=== PATIENT | male | born 1965 | race Caucasian/White ===

== ENCOUNTER 2016-10-28 10:13 | Inpatient (IN) ==
[2016-10-28 11:48] LABS: MANUAL DIFF NEEDED? NO
[2016-10-28 11:53] LABS: BASO% 0.3 % (0.0-0.8); EOS# 0.22 X1000 (0.0-0.7); EOS% 2.2 % (0.0-10.0); HEMATOCRIT 31.7 % (42.0-52.0); HEMOGLOBIN 9.9 g/dL (14.0-18.0); LYMPH# 1.42 X1000 (1.2-3.4); LYMPH% 14.3 % (20.5-51.1); MCH 24.9 PG (27-31); MCHC 31.2 g/dL (33-37); MCV 79.8 FL (81-99); MONO# 0.72 X1000 (0.11-0.59); MONO% 7.2 % (1.7-9.3); MPV 9.9 FL (7.4-10.4); PLT 267 X1000 (130-400); RBC 3.97 XMIL (4.7-6.1)
--- NOTE | 2016-10-28 12:03 | Diag Imaging Result Doc PS360 ---
FOOT COMPLETE LEFT - 10/28/2016 INDICATION: Infection TECHNIQUE: Three views COMPARISON: 05/28/2016 FINDINGS: There is an open wound at the lateral left mid foot with a wound VAC attached. Stable severe pedal edema. There is significant erosion of the cuboid and fifth metatarsal. The first through fourth metatarsals are grossly intact. There is chronic fracture with new bone formation longitudinally along the calcaneus this also affects the posterior subtalar facet, which is mildly displaced here. There is significant destruction and disorganization of all of the tarsal bones compatible with chronic neuropathic joint disease as well. IMPRESSION: Significant worsening from prior. Electronically signed by Robin Queen 10/28/2016 12:01 PM
--- NOTE | 2016-10-28 12:05 | Diag Imaging Result Doc PS360 ---
FOOT COMPLETE RIGHT - 10/28/2016 INDICATION: Cellulitis TECHNIQUE: Three views COMPARISON: None FINDINGS: There are internal fixation screws at the posterior calcaneus and first metatarsal base. There is a chronic fracture through the proximal fifth metatarsal shaft. There is overlying soft tissue swelling with tiny amount of soft tissue gas compatible with infection. There is severe diffuse mid tarsal joint degeneration compatible with neuropathic joint disease. No large bony erosions. There is pedal edema. IMPRESSION: Extensive chronic appearing changes. Soft tissue infection with soft tissue gas overlying the lateral fifth metatarsal base. Electronically signed by Robin Queen 10/28/2016 12:03 PM
[2016-10-28 12:07] LABS: AGAP 16; ALBUMIN 3.2 g/dL (3.5-5.0); ALKALINE PHOSPHATASE 103 U/L (32-122); BUN 14 mg/dL (8-22); CALCIUM 8.9 mg/dL (8.8-10.2); CHLORIDE 98 mmol/L (98-107); CK PROFILE 55 U/L (24-204); COSMO 278; GOT 50 U/L (10-34); GPT 58 U/L (10-44); POTASSIUM 4.1 mmol/L (3.5-5.1); SODIUM 136 mmol/L (136-145); TCO2 22 mmol/L (25-35); TOTAL BILIRUBIN 0.26 mg/dL (0.20-1.00); TOTAL PROTEIN 7.8 g/dL (6.3-8.3)
[2016-10-28 12:09] LABS: INR 1.07; PROTIME 11.3 Seconds (9.2-11.7); PTT 31.3 Seconds (22.0-36.0)
[2016-10-28 13:00] LABS: URIC ACID 3.8 mg/dL (3.4-7.0)
--- NOTE | 2016-10-28 13:34 | PROVIDER DOCUMENTATION ---
This chart was entered by Ary Reese Scribe, acting as scribe for Ady Watkins MD. HPI-Rash/Wound/ReCheck - General Chief Complaint: Extremity Pain Stated Complaint: LEFT LEG PAIN Time Seen by Provider: 10/28/16 10:22 Source: patient Allergies/Adverse Reactions: Allergies Allergy/AdvReac Type Severity Reaction Status Date / Time No Known Allergies Allergy Verified 05/28/16 12:59 Home Medications: Home Medication List Medication Instructions Recorded Confirmed Last Taken Type Allopurinol 300 mg PO QAM 05/28/16 10/28/16 10/28/16 08:00 History Carvedilol 6.25 mg PO BID 05/28/16 10/28/16 10/28/16 08:00 History Cholecalciferol (Vitamin D3) 50,000 unit PO Q7D 05/28/16 10/28/16 10/22/16 08: 00 History [Vitamin D3] Empagliflozin [Jardiance] 10 mg PO QAM 05/28/16 10/28/16 10/28/16 08:00 History Glyburide 5 mg PO BID 05/28/16 10/28/16 10/28/16 08:00 History Losartan/Hctz [Hyzaar 100/12.5 mg 1 each PO DAILY 05/28/16 10/28/16 10/28/16 08: 00 History Tab] Metformin [Glucophage] 1,000 mg PO BID CC 05/28/16 10/28/16 10/28/16 08:00 History Hydrocodone/APAP 10 mg/325 mg 1 each PO Q4H PRN PRN #30 tablet 06/06/1610/28/16 08:00 Rx [[place]-10] ATORVAstatin [Lipitor] 20 mg PO HS 10/28/16 10/28/16 10/27/16 21:00 History Albiglutide [Tanzeum] 30 mg SQ Q7D 10/28/16 10/28/16 10/22/16 08:00 History Insulin Glargine [Lantus] 30 unit SUBQ QHS 10/28/16 10/28/16 10/27/16 21:00 History Penicillin V Potassium [Penicillin 500 mg PO BID 10/28/16 10/28/16 10/28/16 08: 00 History V Potassium] Sulfamethoxazole/Tmp D.s. [Septra 1 each PO BID 10/28/16 10/28/16 10/28/16 08: 00 History Ds] - History of Present Illness-Dermatology Nature of Presenting Problem: 51 yo M presents to the ER with complaint of fever and LLE swelling, erythema, and tenderness, progressively getting worse over last week. Pt had surgery and wound vac placed in L foot in June, pt states Dr. Diego removed part of the bone as well. Since has been taking antibiotics and changing the wound dressing x3 times a week. Also has sore to R foot that is now oozing and getting worse. LLE is more swollen than R. Pt states his sugar has been running between 130-170. Location: reports: lower extremity Quality: reports: painful Onset/Duration: reports: 1 week ago Context/Associated Symptoms: reports: edema, fever, tingling Similar Symptoms Previously?: Yes Recently seen or treated by another doctor?: Yes Review of Systems - Adult - REVIEW OF SYSTEMS - ADULT Constitutional: reports: chills, fever Eyes: reports: no symptoms reported Ears, Nose, Mouth & Throat: reports: no symptoms reported Cardiovascular: denies: chest pain, palpitations Respiratory: denies: cough, shortness of breath, wheezing Gastrointestinal: denies: diarrhea, nausea, vomiting Genitourinary: reports: no symptoms reported Musculoskeletal: reports: no symptoms reported Integumentary: reports: see HPI, skin sores/ulcer. denies: itching Neurological: reports: no symptoms reported Psychiatric: reports: no symptoms reported Endocrine: reports: no symptoms reported Hematologic/Lymphatic: reports: no symptoms reported Allergic/Immunologic: reports: no symptoms reported All Other Systems: Reviewed and Negative Past History - Adult - PAST MEDICAL HISTORY-ADULT Review of Records: reports: Nursing Assessment Review, Medications Reviewed Cardiovascular: reports: HTN Respiratory: reports: sleep apnea Musculoskeletal: reports: other (gout) Endocrine/Immune: reports: Diabetes - PRIOR SURGERIES/PROCEDURES Surgical/Procedure History: reports: orthopedic (extremity) - IMMUNIZATION STATUS Childhood Immunizations: See Nurse Assessment Flu Vaccine: See Nurse Assessment Physical Exam-General - PHYSICAL EXAM-ADULT Initial Vital Signs Reviewed: Yes - CONSTITUTIONAL General Appearance: alert, no apparent distress - EYES Eyes: PERRL/EOMI, pink conjunctivae - HEAD, EARS, NOSE, MOUTH & THROAT HENMT: normocephalic/atraumatic, normal ENT inspection - NECK Neck: supple, normal inspection - RESPIRATORY Respiratory: no respiratory distress, no accessory muscle use - CARDIOVASCULAR Cardiovascular: normal peripheral pulses, regular rate, rhythm - MUSCULOSKELETAL Back Exam: no CVA tenderness, no vertebral tenderness Extremity: normal range of motion, no calf tenderness, normal capillary refill, swelling (LLE and R foot) - SKIN Integumentary: warm/dry, erythema (LLE), warm, other (stasis dermatitis L sales, cellulitis change with wound vac in place in L foot, open sore to R lateral foot oozing purulent drainage) - NEUROLOGIC Neurologic: grossly normal, no motor/sensory deficits - PSYCHIATRIC Psych/Mental Status: normal mood/affect, normal thought content, normal thought process, oriented x 3 Progress - PLAN OF CARE/RESULTS Progress/Plan/Lab Results: Vital Signs - 8 hr 10/28/16 10:15 Temperature 98.3 F Pulse Rate 83 Respiratory Rate 18 Blood Pressure 165/57 O2 Sat by Pulse Oximetry 98 Laboratory Results - last 24 hr 10/28/16 10/28/16 10/28/16 11:17 11:17 11:17 WBC 9.95 RBC 3.97 L Hgb 9.9 L Hct 31.7 L MCV 79.8 L MCH 24.9 L MCHC 31.2 L RDW Std Deviation 17.3 H Plt Count 267 MPV 9.9 Neut % (Auto) 76.0 H Lymph % (Auto) 14.3 L Benson % (Auto) 7.2 Eos % (Auto) 2.2 Baso % (Auto) 0.3 Neut # (Auto) 7.56 H Lymph # (Auto) 1.42 Benson # (Auto) 0.72 H Eos # (Auto) 0.22 Baso # (Auto) 0.03 PT INR PTT (Actin FS) Sodium 136 Potassium 4.1 Chloride 98 Carbon Dioxide 22 L Anion Gap 16 BUN 14 Creatinine 0.9 Estimated GFR/1.73 m2 > 60 BUN/Creatinine Ratio 16 Glucose 197 H Calculated Osmolality 278 Uric Acid 3.8 Calcium 8.9 Total Bilirubin 0.26 AST 50 H ALT 58 H Alkaline Phosphatase 103 Creatine Kinase 55 Troponin T Total Protein 7.8 Albumin 3.2 L Globulin 4.6 Albumin/Globulin Ratio 0.7 Plasma Lactate 2.1 10/28/16 10/28/16 11:17 11:17 WBC RBC Hgb Hct MCV MCH MCHC RDW Std Deviation Plt Count MPV Neut % (Auto) Lymph % (Auto) Benson % (Auto) Eos % (Auto) Baso % (Auto) Neut # (Auto) Lymph # (Auto) Benson # (Auto) Eos # (Auto) Baso # (Auto) PT 11.3 INR 1.07 PTT (Actin FS) 31.3 Sodium Potassium Chloride Carbon Dioxide Anion Gap BUN Creatinine Estimated GFR/1.73 m2 BUN/Creatinine Ratio Glucose Calculated Osmolality Uric Acid Calcium Total Bilirubin AST ALT Alkaline Phosphatase Creatine Kinase Troponin T < 0.010 Total Protein Albumin Globulin Albumin/Globulin Ratio Plasma Lactate Orders Category Date Time Status Saline Loc NOW Care 10/28/16 10:32 Active FOOT COMPLETE LEFT [RAD] Stat Exams 10/28/16 10:32 Completed FOOT COMPLETE RIGHT [RAD] Stat Exams 10/28/16 10:32 Completed BLOOD CULTURE [BLDCUL] Stat Lab 10/28/16 12:00 Received CBC WITH ELECTRONIC DIFF [HEME] Stat Lab 10/28/16 11:17 Completed CK PROFILE [SP CHEM] Stat Lab 10/28/16 11:17 Completed COMPREHENSIVE METABOLIC PANEL [CHEM] Stat Lab 10/28/16 11:17 Completed LACTATE, PLASMA [CHEM] Stat Lab 10/28/16 11:17 Completed PROTIME WITH INR [COAG] Stat Lab 10/28/16 11:17 Completed PTT [COAG] Stat Lab 10/28/16 11:17 Completed TROPONIN T Stat Lab 10/28/16 11:17 Completed URIC ACID [CHEM] Stat Lab 10/28/16 11:17 Completed WOUND CULTURE INC GRAM STAIN [RM] Routine Lab 10/28/16 11:51 Received Venous U/S Bilateral Legs Stat Ther 10/28/16 10:32 Completed Result Diagrams: 10/28/16 11:17 10/28/16 11:17 - XRAY 1 XRAY: Right XRAY Study: Foot Impression: Abnormal (extensive chronic appearing changes. soft tissue infection with soft tissue gas overlying the lateral fifth metatarsal base. per radiologist) 2 XRAY: Left XRAY Study: Foot Impression: See EMR Report (significant worsening from prior, per radiologist) Comparison with other Films: changes noted - CONSULTS/PCP/HOSPITALIST Notification #1 *Consult/PCP/Hospitalist*: Skyla/Dr. Gonzalez Time Discussed: 13:33 Consult Disposition: Will see in ED, Admit Departure - Departure Date of Disposition Decision: 10/28/16 Time of Disposition Decision: 13:33 DIAGNOSIS: Cellulitis, Fever Disposition: ADMITTED INPATIENT 09 Certified Medical Emergency: Emergent Condition: Stable Referrals and Follow-Ups: Ying Abel MD [Primary Care Provider] - - Critical Care Note This patient required my direct & personal management of CC.: No This chart was documented by the indicated scribe, (Ary Reese Scribe) and accurately reflects the services I performed and decisions made by me, Ady Watkins MD, as attested by the provider's signature.
[2016-10-28] MEDS ORDERED: VANCOMYCIN 1 GM/NS 1 GM/250 ML IVPB IV ONE (13:48)
[2016-10-28] MEDS ORDERED: ZOSYN 3.375 GM/NS 3.375 GM/50 ML IVPB IV ONE (13:48)
[2016-10-28] MEDS ORDERED: ZOFRAN IV PRN (15:35)
[2016-10-28] MEDS ORDERED: NS 1,000 ML IV SCH (15:35)
[2016-10-28] MEDS ORDERED: VANCOMYCIN IV PER PHARMACY MISC SCH (15:35)
[2016-10-28] MEDS: DIABETA PO SCH (16:27)
[2016-10-28] MEDS: GLUCOPHAGE PO SCH (16:27)
[2016-10-28 16:36] LABS: URINE CULTURE NEEDED? NO; URINE MICRO REVIEW NEEDED? NO; URINE SOURCE CLEAN CATCH
[2016-10-28 16:40] LABS: BILIRUBIN URINE NEGATIVE (NEGATIVE); BLOOD URINE TRACE (NEGATIVE); COLOR YELLOW; GLUCOSE URINE >1000 mg/dL (NEGATIVE); LEUKOCYTES URINE NEGATIVE (NEGATIVE); NITRITE URINE NEGATIVE (NEGATIVE); PH URINE 5.5; PROTEIN URINE TRACE mg/dL (NEGATIVE); SP GRAVITY URINE 1.035; TURBIDITY URINE CLEAR (CLEAR); UROBILINOGEN URINE NORMAL (NORMAL)
[2016-10-28 16:41] LABS: UR EPITHELIAL CELLS <10 /HPF (<10); URINE BACTERIA NEGATIVE /HPF; URINE RBC <10 /HPF (<10); URINE WBC <10 /HPF (<10)
[2016-10-28] MEDS: HUMULIN R SUBQ SCH ×2 (16:51→22:11)
[2016-10-28] MEDS: TYLENOL PO PRN (16:59)
--- NOTE | 2016-10-28 18:21 | Extremity Venous Study ---
PROCEDURE NAME: Venous U/S Bilateral Legs - 10/28/2016 BILATERAL LOWER EXTREMITY VENOUS ULTRASOUND: REQUESTING PHYSICIAN: Dr. Watkins. TETRYL BOILING TUB OPERATOR: Dariana. INDICATION: Pain and swelling with foot ulcers. COMPARISON: Exam from May 2016, which was negative. FINDINGS: The deep and superficial veins of the bilateral lower extremities were visualized along their course. All veins were compressible with forward flow. No evidence of intraluminal thrombus. There is some nonspecific lymphadenopathy in the left groin, would recommend correlating this clinically. SUMMARY: No deep or superficial venous thrombosis in the bilateral lower extremities. cc: MD Jim Gregory MD
--- NOTE | 2016-10-28 20:25 | HISTORY AND PHYSICAL ---
DATE OF ADMISSION: 10/28/2016. PRIMARY CARE PROVIDER: Dr. Ying Abel. PRIMARY SURGEON FOR HIS FOOT WOUNDS: Dr. Corona. PRIMARY INFECTIOUS DISEASE: Dr. Rob. CHIEF COMPLAINTS: 1. Left lower extremity pain and a new redness over the right lateral foot. 2. Fever. HISTORY OF PRESENT ILLNESS: Mr. Rowe is a 51-year-old, male, with a medical history of" 1. Cellulitis on and off over the last 10 years. 2. Diabetes mellitus type 2. 3. Hypertension. 4. Obstructive sleep apnea with CPAP. 5. Type 2 hypertension. 6. Obstructive sleep apnea with CPAP machine use. 7. Right diabetic foot ulcer status post I D several years ago. Who in May of 2016 was seen for a new ulcer of the left foot. Apparently, this ulcer started in April. He presented 05/28/2016 and has been seen by Dr. Corona. During that admission, he had a left foot lateral debridement with some bone removed and has been where a wound VAC ever since. Reviewing antibiotics, he has been on penicillin, per Dr. Rob, as a prophylaxis for the right foot. Given that he has got hardware of the right foot. He started having some complaints of subjective fever up to 101.8 with nocturnal sweats. Apparently, wakes up around 1 or 2 o'clock in the morning drenched. He went to see Dr. Lal, his primary care provider, on Saturday who started him on . The patient states that symptoms did not improve. They did not get worse, but did notice that over the last 5 days the right foot wound that he has had for 2-1/2 years that had been stable is now draining days a milky pink substance and has developed a redness around it. He also noticed the redness of the left lower extremity. It is hot, swollen, and red and he has noticed that over the last 10 days. He states that he normally has lower extremity swelling, but when he props them up, the swelling goes down and over the last 10 days, the swelling has not gone down. His pain level gets up to about a 7/10. As an outpatient, he changes his wound VAC 3 times a week and he has had the wound VAC since June. He sees Dr. Corona every 2-3 weeks. His last visit was 2 weeks ago with him and at that time, there were no symptoms. He was supposed to follow up with Dr. Corona this Saturday. Given the new symptoms, although he has a white count of 9,000 and he is afebrile, he does show signs of cellulitis over the left sales area and around the right foot with purulent drainage from that area. We will go ahead and admit him. Start him on IV antibiotic therapy. Consult Surgery and consult Dr. Rob. PAST MEDICAL HISTORY: 1. Cellulitis on and off over the last 10 years. 2. Diabetes mellitus type 2, requiring insulin. 3. Hypertension. 4. Obstructive sleep apnea on CPAP. 5. History of right foot ulcer for 2-1/2 years that was stable. SURGICAL HISTORY: 1. Right foot incision and drainage with hardware placement in May. 2. Left foot debridement with some bone removed. 3. No other surgeries. SOCIAL HISTORY: 1. Denies tobacco, alcohol or illicit drug use. 2. 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 3. He has 2 children of his own and a supportive at the bedside. FAMILY HISTORY: 1. Father is alive with a history of diabetes mellitus, and kidney stones. 2. His mother is alive with a history of chronic obstructive pulmonary disorder. REVIEW OF SYSTEMS: Fourteen point review of systems were complete and all were negative except for those mentioned in the above HPI. ALLERGIES: No known drug allergies. HOME MEDICATIONS: 1. Tanzeum 30 mg subcutaneous every 7 days. 2. Allopurinol 300 mg p.o. daily. 3. Lipitor 20 mg p.o. nightly. 4. Carvedilol 6.25 mg p.o. twice daily. 5. Vitamin D3 50,000 units p.o. every 7 days. 6. Jardiance 10 mg p.o. daily. 7. Glyburide 5 mg p.o. twice daily. 8. [place] 10 1 tab p.o. every 4 hours p.r.n. for pain. 9. Lantus 30 units subcutaneous nightly. 10. Hyzaar 100/12.5 mg p.o. daily. 11. Metformin 1000 mg p.o. twice daily. 12. Penicillin. 13. Potassium 500 mg p.o. twice daily. 14. Septra DS 1 tab p.o. twice daily. PHYSICAL EXAMINATION: VITAL SIGNS: Temperature 98.3 degrees, heart rate 83, respiratory rate 18, blood pressure 165/57, O2 saturation 98% on room air. 6 foot, 0 inch tall. 252 pounds. BMI is 34.2. GENERAL: Mr. Rowe is a 51-year-old, male, he is in no acute distress. He is able answer questions appropriately. HEENT: Atraumatic, normocephalic. Pupils equal, round, reactive to light. Extraocular movements are intact. NECK: No JVD or carotid bruits noted. CARDIOVASCULAR: S1, S2. Regular rate and rhythm. No rubs, gallops, or murmurs. PULMONARY: Clear to auscultation. Bilateral breath sounds. No accessory muscle use or work of breathing noted. GI: Soft, nontender, nondistended. Positive bowel sounds x4. EXTREMITIES: Left lower extremity, 1 to 2+ edema. Right lower extremity, no edema. +1 to +2 dorsalis pedal pulses, +2 radial pulses. Right foot wound open to air with redness around on the right lateral foot and. Left leg with wound VAC in place on the foot. Left sales to calf with redness, swelling, heat, and pain. Palpable lymph nodes and left groin noted. SKIN: Warm, dry, and intact except for lower extremities as noted on extremity assessment. Also has an old scab over the left sales and in the area where the cellulitis is. NEUROLOGIC: Alert and oriented x4. Moves all extremities equally. LABORATORY DATA: CBC: White blood cells 9,000. Hemoglobin 9, hematocrit 31, platelet count 267,000. INR: 1.07. PTT: 31.3. Chem: Sodium 136, potassium 4.1, BUN 14, creatinine 0.9, glucose 197, uric acid 3.8, calcium 8.9, bilirubin 0.26, AST 58, ALT 58. CK 55 , troponin less than 0.01, albumin 3.2, lactate 2.1. IMAGING: Complete left foot x-ray 3 views: Shows open wound at the lateral left mid foot with wound VAC attached, stable. Severe pedal edema. Significant erosion of the cuboid and 5th metatarsal. The 1st through 4th metatarsals are intact. There is a chronic fracture with new bone formation longitudinal along the calcaneus, which affects the posterior subtalar facet, which is mildly displaced. There is significant destruction and disorganization of all of the tarsal bones, compatible with chronic neuropathic joint disease as well. This x-ray has significant worsening from the prior x-ray. Three view x-ray of the right foot: Shows internal fixation screws at the posterior calcaneus and 1st metatarsal base. There is a chronic fracture through the proximal 5th metatarsal shaft. There is overlying soft tissue swelling with tiny amount of soft tissue gas compatible with infection. There is severe diffuse mid tarsal joint degeneration compatible with neuropathic joint disease. No large bony erosions and there is pedal edema. ASSESSMENT AND PLAN: 1. Cellulitis, left lower extremity to the foot with open wound. Right foot with new infection of the of an old wound. We will start on broad-spectrum antibiotics, vancomycin and Zosyn. Consult surgery and consult Infectious Disease. Upon reviewing old wound cultures. The left foot, at one point in time on 06/10/2016, had Kocuria kristinae, which is a day gram positive cocci. And then on 05/29/2016, a culture revealed of the left foot noted a Coccus faciallis, which was sensitive to vancomycin and penicillin. As an outpatient, he has been on penicillin twice a day. We will follow up new cultures of the left foot with wound VAC change and then the right foot has also been cultured. 2. Left lower extremity significant swelling with cellulitis. We will go ahead and do an ultrasound to rule out deep vein thrombosis. 3. Diabetes mellitus type 2. Continue most home medications and start on sliding scale insulin, pattern of blood sugar, and diabetic diet. 4. Obstructive sleep apnea. Can use a CPAP machine at home. 5. Hypertension. Continue home medications. 6. Gout. Continue gout medication. DEEP VENOUS THROMBOSIS PROPHYLAXIS: Lovenox. GASTROINTESTINAL PROPHYLAXIS: None for right now. Dictated by WAYLON Kate for Jim Cid MD cc: WAYLON Kate MD Akram Haggag, MD Jason R. Seale, MD Leroy F. Harris, MD MTDD
[2016-10-28] MEDS: LANTUS SUBQ SCH (21:55)
[2016-10-28] MEDS ORDERED: INSULIN PEN NEEDLES ONE (21:59)
[2016-10-28] MEDS: ZOSYN 3.375 GM/NS 3.375 GM/50 ML IVPB IV SCH (22:03)
[2016-10-28] MEDS: LIPITOR PO SCH (22:03)
[2016-10-28] MEDS: COREG PO SCH (22:04)
[2016-10-29] MEDS: VANCOMYCIN 2 GM in NS 500 ML IV SCH ×2 (00:20→17:08)
[2016-10-29] MEDS: ZOSYN 3.375 GM/NS 3.375 GM/50 ML IVPB IV SCH ×4 (02:12→20:31)
--- NOTE | 2016-10-29 05:21 | CONSULTATION ---
DATE OF CONSULTATION: 10/28/2016 HISTORY OF PRESENT ILLNESS: This is a 51-year-old male in short with a longstanding history of bilateral diabetic foot wound and Charcot changes followed by Dr. Diego in the [facility]. He has had numerous debridement's of his right bilateral feet most recently the left since June with a wound VAC in place on the left foot. There was a persistent wound here with some exposed bone that Dr. Diego is considering debriding. He noticed the low-grade fever earlier this week on Saturday with some cellulitis around the wound which has failed to improve with oral antibiotics prompting his presentation to the emergency department. PAST MEDICAL HISTORY: 1. Diabetes. 2. Chronic diabetic foot wounds. 3. Hypertension. 4. Obstructive sleep apnea. SURGICAL HISTORY: He had right foot incision debridement's. There is some hardware placement in his right foot with multiple excisional debridement's of his left foot. SOCIAL HISTORY: No tobacco, alcohol or drugs. He is and has 2 children. He works as a nurse. FAMILY HISTORY: COPD. MEDICATION: Per the MAR. REVIEW OF SYSTEMS: Ten point negative except for what is mentioned in HPI. PHYSICAL EXAMINATION: Temperature 97.8 degrees, pulse 78, blood pressure 121/62 and oxygen saturation 98% on room air.General: He is alert in no acute distress. HEENT: No scleral icterus. Cardiovascular: Normal rate and regular rhythm. Pulmonary: On room air. Extremities: Right foot has a chronic deformity consistent with Charcot changes. There are some incisions previously that are well healed on his foot and a lateral callus with very dry focal eschar here. On the left foot, there is 2+ edema extending to the level of the knee with woody changes here. The lateral foot had a wound VAC. We took this off and there was granulation tissue here with an exposed bone of the 5th metatarsal on palpation. There is no purulence or obvious necrosis here. White count is 9, hematocrit 31, creatinine 0.9, glucose is 197. Troponin's were normal. Albumin is 3.2. X-ray showed bilateral chronic changes both feet. ASSESSMENT AND PLAN: This is a 53-year-old male with chronic diabetic foot wounds who presents now with fevers and some erythema. I think there is some mild cellulitis associated here. This is a chronic wound and Dr. Diego plans to debride possible bone in the future and was debating about taken to the operating room during his last visit last week. I think for this reason we will admit and start him on IV antibiotics. We will continue local wound care and remove his wound VAC. We will place wet-to-dry dressings in the meantime. Dr. Corona will see him and evaluate him. He is on prophylactic antibiotics with ampicillin per Dr. Rob. He is not on any IV antibiotics at home. We will make a decision whether he needs to do this going forward. cc: MD Jim Gregory MD
--- NOTE | 2016-10-29 05:47 | CONSULTATION ---
DATE OF CONSULTATION: 10/28/2016 CONCLUSIONS: The patient is admitted to the hospital with severe left foot infection that appears to have cellulitis. There may be an underlying osteomyelitis. The patient on his right foot has a smaller ulcer, and the foot is not as red. It has an element of cellulitis but I doubt it is osteomyelitis. 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 RECOMMENDATIONS: A culture from the right foot already has been obtained. I have obtained one from the large left foot ulcer. The swab went deep but it did not touch the bone as best I could determine. I agree with placing the patient on vancomycin and Zosyn pending culture results. I have ordered that the foot of the patient's bed should be remain elevated with the manual Gatch at all times. I have told the patient to elevate both feet as much as possible. I have ordered an MRI of the left foot. DISCUSSION: The patient approximately a week ago started developing fever and chills and erythema and swelling in the left foot. Patient has been followed by Dr. Matthew at the wound clinic. He had a VAC on his foot but Dr. Matthew changed this to saline dressings today. Patient's laboratory studies show a CBC with a white count of 9950, hemoglobin 9.9, platelet count is 267,000, creatinine 0.9. ALT is 58. A Gram stain from the patient's right foot a small ulcer showed white cells. Blood cultures are pending. X-rays of both feet showed neuropathic joint disease the left is much worse than the right side. PAST MEDICAL HISTORY/REVIEW OF SYSTEMS: Eyes and Ears: He denies difficulty hearing or seeing. Neck: No stiffness. Respiratory: No cough or shortness of breath. Cardiac: No chest pain or palpitations. GI: No nausea, vomiting, or diarrhea. : No dysuria or flank pain. Endocrine: Patient has diabetes mellitus but not thyroid disease. Bones/Joints/Muscles: See above discussion of neuropathic joint disease. Neurologic: No seizures. No motor or sensory loss. The remainder of the patient's review of systems was completed and was negative. PREVIOUS HOSPITALIZATIONS AND OPERATIONS: He has had surgery on both of his feet. MEDICAL DISEASES: Positive for diabetes mellitus, hypertension, gout and neuropathic joint disease of both feet. Hyperlipidemia. INFECTIOUS DISEASE HISTORY: Positive for leg cellulitis and deeper infection in his left foot. FAMILY HISTORY: Positive for diabetes mellitus, hypertension, stroke, and cancer. SOCIAL HISTORY: The patient lives in [place]. He is . He is a nurse. ALLERGIES: He has no known allergies. He does not have any pets at home. MEDICATIONS: His home medicines include the following Septra, insulin, Lipitor, Tanzeum, penicillin, hydrocodone, cholecalciferol, Jardiance, carvedilol, allopurinol, metformin, losartan/hydrochlorothiazide, and Glyburide. PHYSICAL EXAMINATION: Vital Signs: Temperature is 97.8 degrees, pulse 78, respirations 14, blood pressure 121/62. Patient weighs 246 pounds. General: This is an obese but otherwise healthy- appearing middle-aged male who is in no acute distress. Head, eyes, ears, nose, and throat: He can hear my spoken words and see near objects. No drainage is noted from the nose or ears. There was no white patches on the tongue. Neck: No meningismus. Thorax: No increased AP diameter of the chest. Lungs: Clear to auscultation. Cardiovascular: Heart rate is regular. Abdomen: Soft and nontender. Extremities: The patient's left leg was more swollen than the right. It had been the area between the ankle and the knee. The left foot had a large deep ulcer laterally and the foot was very erythematous. There was no odor to the foot. The patient's right leg was less swollen and the right foot dressing was intact Neurologic: The patient is alert. He can move his extremities. There is no tremor. His sensation was intact to touch. His memory as regarding his medical history was good. Integument: No rash noted. cc: MD Jim Wall MD
[2016-10-29] MEDS: NORCO-10 PO PRN ×2 (06:22→22:33)
[2016-10-29] MEDS: HUMULIN R SUBQ SCH ×3 (06:23→16:31)
[2016-10-29 07:18] LABS: MANUAL DIFF NEEDED? NO
[2016-10-29 07:24] LABS: BASO% 0.3 % (0.0-0.8); EOS# 0.24 X1000 (0.0-0.7); EOS% 2.8 % (0.0-10.0); HEMATOCRIT 29.6 % (42.0-52.0); HEMOGLOBIN 9.4 g/dL (14.0-18.0); IMM GRAN# 0.04 X1000 (0.0-0.04); IMM GRAN% 0.5 % (0.0-0.5); LYMPH# 1.49 X1000 (1.2-3.4); LYMPH% 17.1 % (20.5-51.1); MCH 24.5 PG (27-31); MCHC 31.8 g/dL (33-37); MCV 77.3 FL (81-99); MONO# 0.77 X1000 (0.11-0.59); MONO% 8.9 % (1.7-9.3); MPV 9.7 FL (7.4-10.4); NEUT% 70.4 % (42.2-75.2); PLT 297 X1000 (130-400); RBC 3.83 XMIL (4.7-6.1)
[2016-10-29 07:31] LABS: INR 1.08; PROTIME 11.4 Seconds (9.2-11.7); PTT 31.1 Seconds (22.0-36.0)
[2016-10-29 07:49] LABS: AGAP 13; ALBUMIN 2.9 g/dL (3.5-5.0); ALKALINE PHOSPHATASE 96 U/L (32-122); BUN 12 mg/dL (8-22); CALCIUM 8.8 mg/dL (8.8-10.2); CHLORIDE 102 mmol/L (98-107); COSMO 274; GOT 38 U/L (10-34); GPT 48 U/L (10-44); MAGNESIUM 1.8 mg/dL (1.5-2.7); POTASSIUM 3.9 mmol/L (3.5-5.1); SODIUM 138 mmol/L (136-145); TCO2 23 mmol/L (25-35); TOTAL BILIRUBIN 0.32 mg/dL (0.20-1.00); TOTAL PROTEIN 7.5 g/dL (6.3-8.3)
[2016-10-29 07:50] LABS: HEMOGLOBIN A1C 7.6 % (4.8-6.0)
[2016-10-29] MEDS: COREG PO SCH ×2 (08:33→20:31)
[2016-10-29] MEDS: GLUCOPHAGE PO SCH ×2 (08:33→16:37)
[2016-10-29] MEDS: ZYLOPRIM PO SCH (08:33)
[2016-10-29] MEDS: DIABETA PO SCH ×2 (08:33→16:37)
[2016-10-29] MEDS: HYZAAR 100/12.5 MG TAB PO SCH (08:33)
[2016-10-29] MEDS: LOVENOX SUBQ SCH (08:34)
[2016-10-29] MEDS ORDERED: VITAMIN D PO SCH (09:00)
--- NOTE | 2016-10-29 13:19 | Diag Imaging Result Doc PS360 ---
EXAM: MRI LOWER EXT W/WO CON-LEFT INDICATION: L foot osteomyelitis TECHNIQUE: COMPARISON: 05/28/2016 FINDINGS: There has been marked erosion of the fifth metatarsal since the previous study. There is marrow signal abnormality and worsening erosive changes involving the cuboid indicating osteomyelitis. There is also new marrow edema involving the anterior aspect of the calcaneus. There is also evidence of osteomyelitis now at the base of the fourth metatarsal. There is extensive irregularity and signal abnormality involving multiple intertarsal joints and the surrounding bone. This is similar but appears worse than the previous study. At least some of this represents changes related to a neuropathic foot. There is a prominent ulcer involving the soft tissues overlying the cuboid, which extends to the surface of the cuboid. There is extensive soft tissue edema around the ulceration. There is fluid signal and enhancement around the peroneus longus tendon suggesting tenosynovitis. IMPRESSION: Interval worsening of osteomyelitis and neuropathic foot as compared to the previous study. Electronically signed by Shemar Conn 10/29/2016 1:17 PM
--- NOTE | 2016-10-29 15:14 | PROGRESS NOTE ---
DATE: 10/29/2016 SUBJECTIVE: The patient is resting comfortably in bed. He has got dressing on both of his feet. OBJECTIVE: Vital Signs: Temperature 98.6 degrees, blood pressure 149/66, heart rate 74, respirations 18, O2 saturations 97% on room air. General: This is a morbidly obese male, lying in bed, in no acute distress. Head: Normocephalic, atraumatic. Heart: S1, S2. Normal. Regular rate and rhythm. Lungs: Clear to auscultation bilaterally. Abdomen: Positive bowel sounds. Soft, nontender, nondistended. Extremities: The patient has dressings applied to both of his feet. Neurologic: The patient is alert and oriented x3. LABORATORY: Sodium 138, potassium 3.9, chloride 102, CO2 23, BUN 12, creatinine 0.9, glucose 77. Hemoglobin A1c 7.6. AST 38, ALT 48, alkaline phosphatase 96. ASSESSMENT AND PLAN: 1. Left foot osteomyelitis and right foot ulceration with cellulitis. management as per Dr. Rob and Dr. Corona. 2. Uncontrolled insulin-dependent diabetes mellitus type 2. The patient's hemoglobin A1c is 7.6. We will continue on Lantus 30 units at bedtime plus sliding scale coverage. 3. Morbid obesity. Aware. 4. Vitamin D deficiency. Continue with vitamin D replacement. 5. Hypertension. Continue on the current antihypertensives regimen. 6. Deep venous thrombosis prophylaxis. Continue on Lovenox. cc: MD Jim Valadez MD
[2016-10-29] MEDS: TYLENOL PO PRN (16:43)
--- NOTE | 2016-10-29 17:53 | PROGRESS NOTE ---
DATE: 10/29/2016 PRESENT ILLNESS: The patient has a combination of severe neuropathic joint disease and osteomyelitis especially in the left foot but most likely the same process is going on in the right foot. In addition the left foot has cellulitis. The patient is on a combination of vancomycin and Zosyn. This is day 1 of treatment with him pending results of culture. MEDICATIONS: The patient, as mentioned above, is on vancomycin and Zosyn. This is day 1 of their treatment. PHYSICAL EXAMINATION: Vital Signs: Temperature is 98 degrees, pulse 65, respirations 18, blood pressure 135/69. Generally: This is a chronically ill-appearing middle-aged male. He is in no acute distress. Lungs: Clear to auscultation. Cardiovascular: Regular heart rate. Abdomen: Soft and nontender. Extremities: The left leg was more swollen than the right. I removed the dressing on the left foot. It has a large wound. When I stuck the swab in to get a culture it went to the bone thus confirming a diagnosis of osteomyelitis. Neurologic: Patient is awake. He can move his extremities. There is no tremor. ASSESSMENT AND PLAN: The patient has severe foot infection especially in the left foot. I am waiting for the final results from his cultures. For right now, I am going to continue treating with vancomycin and Zosyn. The plan will be to continue his antibiotics and to keep this person off his feet. As an outpatient, I think it would be reasonable for him to see Dr. Cheema if he has anything further to add about treating the patient's infection and neuropathic joint disease. COMORBIDITIES: He has neuropathic joint disease, diabetes mellitus, gout and he is obese. cc: MD Jim Wall MD
[2016-10-29] MEDS: LIPITOR PO SCH (20:32)
[2016-10-29] MEDS: LANTUS SUBQ SCH (20:35)
[2016-10-30] MEDS: HUMULIN R SUBQ SCH ×4 (03:18→20:55)
[2016-10-30] MEDS: ZOSYN 3.375 GM/NS 3.375 GM/50 ML IVPB IV SCH ×3 (04:16→14:35)
[2016-10-30 07:50] LABS: MANUAL DIFF NEEDED? NO
[2016-10-30 07:55] LABS: BASO% 0.7 % (0.0-0.8); EOS# 0.25 X1000 (0.0-0.7); EOS% 3.6 % (0.0-10.0); HEMATOCRIT 30.6 % (42.0-52.0); HEMOGLOBIN 9.7 g/dL (14.0-18.0); IMM GRAN# 0.06 X1000 (0.0-0.04); IMM GRAN% 0.9 % (0.0-0.5); LYMPH# 1.34 X1000 (1.2-3.4); MCH 24.7 PG (27-31); MCHC 31.7 g/dL (33-37); MCV 77.9 FL (81-99); MONO# 0.63 X1000 (0.11-0.59); MONO% 8.9 % (1.7-9.3); MPV 9.9 FL (7.4-10.4); NEUT% 66.9 % (42.2-75.2); PLT 314 X1000 (130-400); RBC 3.93 XMIL (4.7-6.1)
[2016-10-30 08:15] LABS: AGAP 12; BUN 14 mg/dL (8-22); CALCIUM 9.1 mg/dL (8.8-10.2); CHLORIDE 99 mmol/L (98-107); COSMO 275; POTASSIUM 4.5 mmol/L (3.5-5.1); SODIUM 136 mmol/L (136-145); TCO2 25 mmol/L (25-35)
[2016-10-30] MEDS: DIABETA PO SCH ×2 (09:25→16:58)
[2016-10-30] MEDS: HYZAAR 100/12.5 MG TAB PO SCH (09:25)
[2016-10-30] MEDS: ZYLOPRIM PO SCH (09:25)
[2016-10-30] MEDS: LOVENOX SUBQ SCH (09:26)
[2016-10-30] MEDS: GLUCOPHAGE PO SCH ×2 (09:26→16:58)
[2016-10-30] MEDS: COREG PO SCH ×2 (09:27→21:15)
[2016-10-30] MEDS: VANCOMYCIN 2 GM in NS 500 ML IV SCH (11:01)
--- NOTE | 2016-10-30 12:46 | PROGRESS NOTE ---
DATE: 10/30/2016 SUBJECTIVE: Today, Mr. Rowe referred to be doing a lot better. Still continues to have some warm feeling in the left leg. Patient was evaluated today by Dr. Corona and was recommended to be seen by Orthopedics. OBJECTIVE: Vital Signs: Blood pressure is 135/73, pulse of 70, respiration 16, temperature is 98.3 degrees. General: Mr. Rowe is a 51-year-old male. He was in bed. He is slightly obese with a BMI of 33.4. He was not in any distress. HEENT: Mucosa pink and moist. Anicteric. Acyanotic. Neck supple. Chest was good. No crepitations. No rhonchi. Cardiovascular: Regular rate and rhythm. Abdomen is slightly distended but nontender. Bowel sounds are present. Extremities: No pedal edema. There are some chronic changes consistent with stasis dermatitis. Both feet are in sterile dressing. The left leg is slightly warm, but there are no acute inflammatory changes. IMAGING STUDIES OF SIGNIFICANCE: An MRI was done yesterday of the lower extremity which shows interval worsening of osteomyelitis and neuropathic feet compared to previous. ASSESSMENT: 1. Osteomyelitis to left foot. The patient has been evaluated by General Surgery. I think the plan is for Orthopedics to evaluate to see if they would want to do any amputation or any bone removal for the osteomyelitis. 2. Diabetes mellitus, insulin dependent. A1c 7.6. We will continue with the current therapy. 3. Vitamin D deficiency noted. 4. Hypertension, controlled. 5. Mild obesity with Body Mass Index of 33.4. 6. Microcytic anemia likely related to chronic disease with possible relative iron deficiency. We would do iron studies. cc: Alex Nascimento MD [facility]
--- NOTE | 2016-10-30 13:28 | PROGRESS NOTE ---
DATE: 10/30/2016 SUBJECTIVE: The patient reports recent increase in pain in his leg and foot and some low-grade fever. OBJECTIVE: Vital signs: He is afebrile. Vital signs are stable. General: He is alert and oriented x3. No acute distress. Extremities: His left foot wound was examined. Again, there is granulation across the dorsum. However, laterally there is persistent non-granulated soft tissue. It is somewhat montesinos in appearance. There is no gross pus or foul odor, however. There is palpable bone underneath this soft tissue. The foot and ankle are mildly red and swollen and warm. LABORATORY: White blood cell count 7, hemoglobin 9.7, hematocrit 30.6, platelet count 314,000. Metabolic profile was reviewed. His blood sugars are in the mid to high 100s. Hemoglobin A1c is 7.6. IMAGING: An MRI of his left foot was reviewed and there is erosion of the 5th metatarsal and marrow signal abnormality with erosive changes involving the cuboid, this indicates osteomyelitis, as well as some marrow edema of the anterior aspect of the calcaneus. There is also evidence of osteomyelitis at the base of the 4th metatarsal. There is extensive irregularity and signal abnormality involving multiple intertarsal joints and surrounding bones. This is worse from the previous study. Some of this represents a neuropathic foot. There is fluid signal enhancement around the peroneus longus tendon suggesting tenosynovitis. ASSESSMENT AND PLAN: A 51-year-old male with chronic nonhealing diabetic foot ulcer with a history of osteomyelitis and Charcot arthropathy. Overall this appears to have worsened. There is likely worsening degenerative changes of his mid and hindfoot with associated osteomyelitis. I do not know if this foot can be salvaged at this point. I am going to ask for Dr. Cheema's evaluation for any salvageability. We will continue IV antibiotics, vancomycin and Zosyn, with wet-to-dry dressing changes for now. cc: MD Alex Fulton MD
--- NOTE | 2016-10-30 15:42 | PROGRESS NOTE ---
DATE: 10/30/2016 SUBJECTIVE: The patient is doing fine this afternoon. No new complaints. OBJECTIVE: I looked at his right foot wound during this exam and he does have a tunneling sinus with palpable bone very close to the skin Edge. There is some thick, mostly clotted blood that is draining of the wound. I do not see any luciana pus or surrounding erythema. He does have Charcot deformity of this foot as well. ASSESSMENT AND PLAN: This is a 51-year-old male with Charcot arthropathy of both feet. The left is worse than the right. There is a concern for worsening osteomyelitis of the left foot and now possibly of the right foot. At this point, he is failing the wound care that I have been doing for several months. I have talked to Dr. Linden Cheema who prefers to see him next week in his office for possible wide debridement and external fixation of the left foot. He wants to biopsy the bone to try to prove whether this is truly osteomyelitis or simply degenerative arthritic changes. He felt like keeping him off antibiotics for right now would be fine. He has a chronic process and the antibiotics probably would not gain us much at this point. So the plan is to let him be discharged today or tomorrow, hold off antibiotics and try to get a true bone culture with Dr. Cheema perhaps next week. cc: MD Alxe Fulton MD
--- NOTE | 2016-10-30 16:01 | PROGRESS NOTE ---
DATE: 10/30/2016 PRESENT ILLNESS: The patient has severe neuropathic joint disease going on in both feet and also there appears to be osteomyelitis and cellulitis involving the left foot as well and possibly to a lesser extent, to the right foot. The patient is on a combination of vancomycin and Zosyn. This is day 2 of treatment with the antibiotics. MEDICATIONS: As mentioned above, the patient is on day 2 of vancomycin and Zosyn. PHYSICAL EXAMINATION: Vital Signs: Temperature is 97.8, pulse 72, respirations 18, blood pressure 133/62. Generally: This is a chronically ill-appearing, middle-aged male. He is in no acute distress. Lungs: Clear to auscultation. Cardiovascular: Heart rate is regular. Abdomen: Soft and nontender. Extremities: There are dressings around both feet. The left leg is more swollen than the right. The dressings are intact. ASSESSMENT AND PLAN: The patient has a severe neuropathic disease and probable osteomyelitis as well. He has been this way for a prolonged period of time and for now, our plan is to stop the antibiotics and then let him see Dr. Cheema as an outpatient to see if there is some type of salvage procedure that can be done on the foot or whether amputation is necessary. Dr. Corona and I discussed situation and we both feel it would be better to stop the antibiotics now. That way, we can get good cultures if the patient does have an infection in there. Prior to this time, the patient has been off antibiotics for long periods of time and his foot does not seem to improve or get worse. He has been off antibiotics for a long period of time, and his foot does not deteriorate or get any worse than it does when he is on antibiotics. I have ordered a MRI on the R foot. COMORBIDITIES: Include neuropathic joint disease, diabetes mellitus, gout and obesity, possibly not good control of his diabetes. cc: MD Alex Wall MD MTDD
--- NOTE | 2016-10-30 17:00 | Diag Imaging Result Doc PS360 ---
EXAM: MRI LOWER EXT W/WO CON-RIGHT HISTORY: osteomyelitis, neuropathic arthropathy R foot TECHNIQUE: MRI of the right foot with and without gadolinium; T1-T2 axial, T1 STIR coronal, T1 sagittal and post gadolinium-enhanced fat-suppressed sagittal, T1 SPGR fat sat with contrast coronal and T1 post gadolinium axial. COMMENT: There is metallic artifact arising from a screw in the proximal first metatarsal and another in the posterior calcaneus. There is edema on the lateral aspect of the plantar fascia. There is what appears to be a subchondral cyst in the posterior cuboid. There is an old fracture of the proximal fifth metatarsal which is also seen on the plain radiographs of 10/28/2016. There is a questionable focal edema present in the proximal third metatarsal. There is an associated linear decreased signal intensity in the bases of the fourth and third metatarsals and is possible this is a result of a previous fracture. IMPRESSION: Degenerative, postsurgical, and probable old posttraumatic changes as described. No definite evidence of osteomyelitis. The possibility of mild plantar fasciitis cannot be excluded. Electronically signed by Akin Mtathews 10/30/2016 4:58 PM
[2016-10-30] MEDS: LANTUS SUBQ SCH (21:13)
[2016-10-30] MEDS: NORCO-10 PO PRN (21:14)
[2016-10-30] MEDS: LIPITOR PO SCH (21:15)
[2016-10-31] MEDS: HUMULIN R SUBQ SCH ×2 (06:40→11:14)
[2016-10-31 07:24] LABS: BASO% 0.5 % (0.0-0.8); EOS# 0.25 X1000 (0.0-0.7); EOS% 4.1 % (0.0-10.0); HEMOGLOBIN 9.6 g/dL (14.0-18.0); LYMPH# 1.58 X1000 (1.2-3.4); LYMPH% 25.9 % (20.5-51.1); MANUAL DIFF NEEDED? YES; MCH 24.9 PG (27-31); MCV 80.3 FL (81-99); MONO# 0.52 X1000 (0.11-0.59); MONO% 8.5 % (1.7-9.3); MPV 9.9 FL (7.4-10.4); PLT 329 X1000 (130-400); RBC 3.86 XMIL (4.7-6.1)
[2016-10-31 07:39] VITALS: BP 116/68
[2016-10-31 07:39] LABS: AGAP 13; BUN 16 mg/dL (8-22); CALCIUM 9.4 mg/dL (8.8-10.2); CHLORIDE 98 mmol/L (98-107); COSMO 276; POTASSIUM 4.2 mmol/L (3.5-5.1); SODIUM 136 mmol/L (136-145); TCO2 25 mmol/L (25-35)
[2016-10-31 07:40] LABS: IRON SATURATION 13 %; TIBC 182 ug/dL; TOTAL IRON 24 ug/dL (53-167); UNBOUND IRON 158 ug/dL (112-346)
[2016-10-31 07:57] LABS: FERRITIN 278 ng/mL (30-400)
[2016-10-31] MEDS: HYZAAR 100/12.5 MG TAB PO SCH (08:39)
[2016-10-31] MEDS: ZYLOPRIM PO SCH (08:39)
[2016-10-31] MEDS: COREG PO SCH (08:39)
[2016-10-31] MEDS: LOVENOX SUBQ SCH (08:40)
[2016-10-31] MEDS: GLUCOPHAGE PO SCH (08:40)
[2016-10-31] MEDS: DIABETA PO SCH (08:40)
[2016-10-31 08:45] LABS: LYMPHS 22 % (21-51); MONO 12 % (1-9)
--- NOTE | 2016-10-31 15:32 | PROGRESS NOTE ---
DATE: 10/31/2016 Patient is being discharged today on no antibiotics. The patient has both neuropathic arthropathy and osteomyelitis of the left foot, and he will be seeing Dr. Cheema for further treatment. I obtained an MRI of the patient's right foot. It showed degenerative postsurgical and old traumatic changes, but no evidence of osteomyelitis. cc: MD Alex Wall MD
--- NOTE | 2016-11-01 15:26 | DISCHARGE SUMMARY ---
ADMISSION DATE: 10/28/2016 DISCHARGE DATE: 10/31/2016 DISPOSITION: Home. FOLLOWUP: 1. Dr. Durga Rob. 2. Dr. Linden Cheema. 3. Dr. Tray Corona. 4. Dr. Ying Abel. CONSULTATION DURING THIS ADMISSION: 1. Infectious Disease was consulted. Patient was seen by Dr. Durga Rob. 2. Surgery was consulted. Patient was seen by Dr. Tray Corona. 3. Orthopedics consulted. Patient was seen by Dr. Linden Cheema. ADMISSION DIAGNOSES: 1. Cellulitis left lower extremity. 2. Left lower extremity swelling with cellulitis. 3. Diabetes mellitus. 4. Obstructive sleep apnea. 5. Hypertension. DISCHARGE DIAGNOSES: 1. Osteomyelitis of the left foot. 2. Lower extremity Charcot feet, more on the left than the right. 3. Vitamin D deficiency. 4. Diabetes mellitus, insulin dependent. 5. Obesity with Body Mass Index of 33.4. 6. Microcytic anemia secondary to chronic illness with relative iron deficiency. DISCHARGE MEDICATIONS: 2. Allopurinol 30 mg daily. 3. Glyburide 5 mg b.i.d. 4. Metformin 1000 b.i.d. 5. Losartan/hydrochlorothiazide 1 tablet daily. 6. Cholecalciferol 50,000 units q. 7 days. 7. Carvedilol 6.25 b.i.d. 8. Hydrocortisone. 9. Albiglutide 30 mg subcutaneously q. 7 days. 10. Insulin glargine 30 units subcutaneously at bedtime. 11. Atorvastatin 20 mg daily. PRESENTING COMPLAINT: Lower extremity swelling. HISTORY OF PRESENTING COMPLAINT: Mr. Rowe is a 51-year-old male with history of long-standing Charcot arthropathy and also open wound to his lower extremities. The patient has been treated on an outpatient basis [facility] by Dr. Corona. Before the patient got admitted, he was having some fevers and swelling, so he got admitted for possible superimposed cellulitis. There was concern for possible osteomyelitis. An MRI of the left lower extremity was done which showed some interval worsening of osteomyelitis and neuropathic foot. An MRI of the right leg was done which only showed degenerative postsurgical changes. Initially, the patient was treated with IV antibiotics. Surgery was consulted and Infectious Disease was also consulted. At one point during the hospital stay, it was assumed that the MRI changes where probably more of a neuropathic disease than infection, so Infectious Disease made a decision to stop the antibiotics. Surgery consulted Orthopedics. Dr. Cheema recommended that he was going to see the patient on outpatient basis and make a decision if the patient will need further debridement or any intervention. The patient was clinically stable. All his labs and vitals were stable. So, we decided to discharge him to follow up with Dr. Cheema and also Dr. Corona and Dr. oRb, as well as his primary care doctor. The patient did have A1c level of 7.6, so we did not make any changes to his current diabetic management. We also did iron studies. His ferritin was 278. So, we did not put him on any iron supplement. We think his microcytic anemia is subsequent to his chronic illness. The patient will be discharged in a very stable condition to follow up with the subspecialties involved in his care. At the time of discharge, there are no pending labs or imaging studies. TIME SPENT FOR DISCHARGE: 37 minutes. cc: Alex Nascimento MD MTDD
== END 2016-10-31 16:15 | disposition home or self-care (01) ==
LOC: ED 10:13 → 3N 10:14 → SUATTDRO 10:14
PROVIDERS: ADMIT Internal Medicine; ATTEND Internal Medicine

== ENCOUNTER 2016-11-07 22:51 | Inpatient (IN) ==
[2016-11-08 00:49] LABS: MANUAL DIFF NEEDED? NO
[2016-11-08 00:56] LABS: BASO% 0.3 % (0.0-0.8); EOS# 0.04 X1000 (0.0-0.7); EOS% 0.5 % (0.0-10.0); HEMOGLOBIN 10.1 g/dL (14.0-18.0); IMM GRAN# 0.02 X1000 (0.0-0.04); IMM GRAN% 0.3 % (0.0-0.5); LYMPH% 11.6 % (20.5-51.1); MCH 24.5 PG (27-31); MCHC 31.6 g/dL (33-37); MCV 77.7 FL (81-99); MONO# 0.47 X1000 (0.11-0.59); MPV 9.9 FL (7.4-10.4); NEUT% 81.3 % (42.2-75.2); PLT 367 X1000 (130-400); RBC 4.12 XMIL (4.7-6.1)
[2016-11-08 01:10] LABS: AGAP 12; ALBUMIN 3.1 g/dL (3.5-5.0); ALKALINE PHOSPHATASE 96 U/L (32-122); BUN 16 mg/dL (8-22); CALCIUM 9.4 mg/dL (8.8-10.2); CHLORIDE 98 mmol/L (98-107); COSMO 272; GOT 27 U/L (10-34); GPT 29 U/L (10-44); POTASSIUM 4.1 mmol/L (3.5-5.1); SODIUM 133 mmol/L (136-145); TCO2 23 mmol/L (25-35); TOTAL PROTEIN 8.1 g/dL (6.3-8.3)
--- NOTE | 2016-11-08 01:15 | PROVIDER DOCUMENTATION ---
This chart was entered by Nallely Reyes Scribe, acting as scribe for Robbie Vaughn MD. HPI-Fever - General Chief Complaint: Fever Stated Complaint: FEVER Time Seen by Provider: 11/07/16 23:31 Source: patient Allergies/Adverse Reactions: Patient Allergies Allergy/AdvReac Type Severity Reaction Status Date / Time No Known Allergies Allergy Verified 05/28/16 12:59 Home Medications: Home Medication List Medication Instructions Recorded Confirmed Last Taken Type Allopurinol 300 mg PO QAM 05/28/16 10/28/16 10/28/16 08:00 History Carvedilol 6.25 mg PO BID 05/28/16 10/28/16 10/28/16 08:00 History Cholecalciferol (Vitamin D3) 50,000 unit PO Q7D 05/28/16 10/28/16 10/22/16 08: 00 History [Vitamin D3] Empagliflozin [Jardiance] 10 mg PO QAM 05/28/16 10/28/16 10/28/16 08:00 History Glyburide 5 mg PO BID 05/28/16 10/28/16 10/28/16 08:00 History Losartan/Hctz [Hyzaar 100/12.5 mg 1 each PO DAILY 05/28/16 10/28/16 10/28/16 08: 00 History Tab] Metformin [Glucophage] 1,000 mg PO BID CC 05/28/16 10/28/16 10/28/16 08:00 History Hydrocodone/APAP 10 mg/325 mg 1 each PO Q4H PRN PRN #30 tablet 06/06/1610/28/16 08:00 Rx [[place]-10] ATORVAstatin [Lipitor] 20 mg PO HS 10/28/16 10/28/16 10/27/16 21:00 History Albiglutide [Tanzeum] 30 mg SQ Q7D 10/28/16 10/28/16 10/22/16 08:00 History Insulin Glargine [Lantus] 30 unit SUBQ QHS 10/28/16 10/28/16 10/27/16 21:00 History - History of Present Illness-Fever Nature of Presenting Problem: 51 Y/O M presents to ED with Fever. Pt states that he started running a fever yesterday, states fever of 101.2 at home. Pt states that he saw Dr. Avalos for his foot today had foot surgery in May. pt has an open wound on the bottom of his left foot, Hx of infected foot ulcer. Pt has Type 2 diabetes, was discharge from the hospital last Saturday. pt states that said to stop his antibiotics as of 2 weeks ago. Fever Severity/Quality: reports: greater than 100.5 F Onset/Duration: reports: 2 days ago Timing: reports: still present Severity: reports: severe Context: reports: decubitus ulcers (left foot) Recent Illness?: reports: none Cognitive Baseline: alert, oriented x3 Associated Symptoms: reports: fever/chills, nausea, vomiting. denies: shortness of breath, sensory/motor loss, swelling/mass in abdomen, weakness Similar Symptoms Previously?: Yes Recently seen or treated by another doctor?: Yes - Glascow Coma Score Best Eye Response (Barry): (4) open spontaneously Best Verbal Response ([place]ry): (5) oriented Best Motor Response ([place]): (6) obeys commands [place] Total: 15 Review of Systems - Adult - REVIEW OF SYSTEMS - ADULT Constitutional: reports: fever Eyes: reports: no symptoms reported Ears, Nose, Mouth & Throat: reports: no symptoms reported Cardiovascular: reports: no symptoms reported Respiratory: reports: no symptoms reported Gastrointestinal: reports: nausea, vomiting. denies: abdominal pain, diarrhea Genitourinary: reports: no symptoms reported Musculoskeletal: reports: other (decubitus ulcers). denies: bone pain, back pain Integumentary: reports: no symptoms reported Neurological: reports: no symptoms reported Psychiatric: reports: no symptoms reported Endocrine: reports: no symptoms reported Hematologic/Lymphatic: reports: no symptoms reported Allergic/Immunologic: reports: no symptoms reported All Other Systems: Reviewed and Negative Past History - Adult - PAST MEDICAL HISTORY-ADULT Review of Records: reports: Old Records Reviewed, Nursing Assessment Review, Medications Reviewed, Social history reviewed & non-contributory. Cardiovascular: reports: HTN Respiratory: reports: sleep apnea Musculoskeletal: reports: other (gout) Endocrine/Immune: reports: Diabetes - PRIOR SURGERIES/PROCEDURES Surgical/Procedure History: reports: orthopedic (extremity) - IMMUNIZATION STATUS Childhood Immunizations: See Nurse Assessment Flu Vaccine: See Nurse Assessment Physical Exam-General - CONSTITUTIONAL General Appearance: alert, no apparent distress - EYES Eyes: PERRL/EOMI, pink conjunctivae - HEAD, EARS, NOSE, MOUTH & THROAT HENMT: moist mucous membranes, normal ENT inspection - NECK Neck: full range of motion, supple, normal inspection - RESPIRATORY Respiratory: lungs clear, normal breath sounds - CARDIOVASCULAR Cardiovascular: regular rate, rhythm - GASTROINTESTINAL (ABDOMEN) Abdominal Exam: non tender, soft - MUSCULOSKELETAL Back Exam: normal inspection, no CVA tenderness, no vertebral tenderness Extremity: other (decubitus ulcer on left foot.) - SKIN Integumentary: normal turgor, warm/dry - NEUROLOGIC Neurologic: grossly normal - PSYCHIATRIC Psych/Mental Status: normal mood/affect, normal thought content, normal thought process, oriented x 3 Progress - PLAN OF CARE/RESULTS Progress/Plan/Lab Results: Vital Signs - 8 hr 11/07/16 22:54 Temperature 100.8 F H Pulse Rate 97 H Respiratory Rate 18 Blood Pressure 120/63 O2 Sat by Pulse Oximetry 99 11/07/16 23:40 Gram Stain - Final Foot - Left Laboratory Results - last 24 hr 11/08/16 00:40 WBC 7.77 RBC 4.12 L Hgb 10.1 L Hct 32.0 L MCV 77.7 L MCH 24.5 L MCHC 31.6 L RDW Std Deviation 17.0 H Plt Count 367 MPV 9.9 Immature Gran % (Auto) 0.3 Neut % (Auto) 81.3 H Lymph % (Auto) 11.6 L [place] % (Auto) 6.0 Eos % (Auto) 0.5 Baso % (Auto) 0.3 Immature Gran # (Auto) 0.02 Neut # (Auto) 6.32 Lymph # (Auto) 0.90 L [place] # (Auto) 0.47 Eos # (Auto) 0.04 Baso # (Auto) 0.02 Orders Category Date Time Status BLOOD CULTURE [BLDCUL] Stat Lab 11/07/16 00:40 Received CBC WITH ELECTRONIC DIFF [HEME] Stat Lab 11/08/16 00:40 Completed CMP [COMPREHENSIVE METABOLIC PANEL] [CHEM] Stat Lab 11/08/16 00:40 Received WOUND CULTURE INC GRAM STAIN [RM] Routine Lab 11/07/16 23:40 Results MRI done on 10/30/2016 Result Diagrams: 11/08/16 00:40 - CONSULTS/PCP/HOSPITALIST Notification #1 *Consult/PCP/Hospitalist*: Time Discussed: 01:08 Reason/Comments: Plan of Care Consult Disposition: Admit (Admit to Hospitalist) #2 Consult: Time Discussed: :12 Reason/Comments: Admit Consult Disposition: Admit (Admit Accepted) Departure - Departure Date of Disposition Decision: 11/08/16 Time of Disposition Decision: 01:09 DIAGNOSIS: Osteomyelitis Qualifiers: Osteomyelitis type: chronic, with draining sinus Osteomyelitis location: foot Laterality: left Qualified Code(s): M86.472 - Chronic osteomyelitis with draining sinus, left ankle and foot Disposition: ADMITTED INPATIENT 09 Certified Medical Emergency: Emergent Condition: Fair Additional Freetext Instructions: ED Follow Up Instructions: You have been treated by a care provider in the Emergency Department. These instructions are being provided to you so you can have an understanding of how to care for yourself upon discharge. Upon discharge from the Emergency Department, you are responsible for making arrangements for follow-up care by a physician of your choice. Take all prescribed medications as directed. Return to the Emergency Department immediately for any new or worsening symptoms. You may call the Physician Referral phone number at [phone] to obtain a list of Physicians who are taking new patients. Referrals and Follow-Ups: Ying Abel MD [Primary Care Provider] - - Critical Care Note This patient required my direct & personal management of CC.: No This chart was documented by the indicated scribe, (Nallely Reyes Scribe) and accurately reflects the services I performed and decisions made by me, Robbie Vaughn MD, as attested by the provider's signature.
[2016-11-08] MEDS ORDERED: ZOFRAN IV PRN (03:52)
[2016-11-08] MEDS ORDERED: VANCOMYCIN IV PER PHARMACY MISC SCH (03:52)
[2016-11-08] MEDS ORDERED: NS 1,000 ML IV SCH (04:45)
[2016-11-08] MEDS: TYLENOL PO PRN ×2 (04:47→19:35)
[2016-11-08] MEDS: ZOSYN 3.375 GM/NS 3.375 GM/50 ML IVPB IV SCH ×4 (04:48→21:46)
[2016-11-08] MEDS ORDERED: VANCOMYCIN 2,500 MG in NS 500 ML IV ONE (05:00)
[2016-11-08 05:09] LABS: INR 1.13
[2016-11-08 05:15] LABS: HEMOGLOBIN A1C 7.8 % (4.8-6.0)
[2016-11-08 05:19] LABS: PTT HEPARIN PROTOCOL 33.7 Seconds
--- NOTE | 2016-11-08 06:32 | HISTORY AND PHYSICAL ---
TIME: 0230 PRIMARY CARE PROVIDER: Dr. Ying Abel. CHIEF COMPLAINT: Fever. HISTORY OF PRESENT ILLNESS: Mr. Rowe is a 51-year-old male who was just recently discharged on 10/31/2016 after being treated here at the hospital for osteomyelitis of the left foot. The patient was treated with IV antibiotics, though ultimately upon discharge, an MRI was performed which showed no definite findings of osteomyelitis. Secondary to this, the patient's IV antibiotics were discontinued and he was discharged to follow up with Dr. Cheema with orthopedic surgery outpatient. The patient reports that he did see Dr. Cheema on Saturday in his office, though after this visit, he did continue to run fever as well as has had some increased pain, warmth, swelling, erythema, and drainage in his left foot wound. The patient states that he initially began having fever, body aches, as well as just some generalized not feeling well on the 06 of November. After noticing that his left foot had increased swelling, warmth, erythema, pain, and drainage, he decided to come to the ER for further evaluation. Upon initial evaluation in the ER, the patient did have vital signs with a temperature of 100.8 degrees orally, heart rate 97, respirations 18, blood pressure 120/63, with oxygen saturation of 99%. He does have a large left lateral foot wound noted that is approximately a tennis ball in size. He has swelling, erythema, and warmth noted to his left foot. This also extends up into his left lower extremity up to just below his knee. There was no active drainage at the time of our examination, though the patient's wound had been previously cleaned and dressed by ER staff. The patient did report a dull headache, though other than this, denies any other symptoms. He denies any dizziness, lightheadedness, chest pain , shortness of breath, cough, abdominal pain. I would like to add that the patient did report that he had 1 episode of nausea with vomiting on the 06 of November but has not had any since. He denies any diarrhea. He denies any hematemesis, hematochezia, or melena. He denies any dysuria or urinary frequency or increased thirst. He denies any other pain except for his reported pain in his bilateral lower extremities. At this time, we will admit the patient for further treatment and evaluation of his bilateral lower extremity wounds. REVIEW OF SYSTEMS: A 12 point review of systems was conducted with the patient. All were negative except for pertinent positives mentioned above in the HPI. PAST MEDICAL HISTORY: 1. Previous problems with cellulitis on and off over the last 10 years. 2. History of lower extremity Charcot feet. 3. Vitamin D deficiency. 4. Diabetes mellitus type 2, requiring insulin. 5. Hypertension. 6. Hyperlipidemia. 7. Gout. 8. Obstructive sleep apnea, currently on CPAP. PAST SURGICAL HISTORY: 1. Right foot incision and drainage with hardware placement in May. 2. Left foot debridement with some bone removed. SOCIAL HISTORY: Patient denies any past or present alcohol, tobacco, or illicit drug use. He is and has 2 children. 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 ALLERGIES: Patient has no known allergies. HOME MEDICATIONS: Tanzeum 30 mg subcutaneously q.7 days, allopurinol 300 mg p.o. q.a.m., Lipitor 20 mg p.o. at bedtime, carvedilol 6.25 mg p.o. b.i.d., vitamin D3 50,000 units p.o. q.7 days, Jardiance 10 mg p.o. q.a.m., glyburide 5 mg p.o. b.i.d., [place] 10 mg 1 p.o. q.4 hours p.r.n. for pain, Lantus 30 units subcutaneously at bedtime, Hyzaar 100/12.5 mg tablet 1 p.o. daily, metformin 1000 mg p.o. b.i.d. DIAGNOSTIC DATA/LABORATORY RESULTS: White blood cell count 7.7, hemoglobin 10.1 , hematocrit 32, platelet count is 367,000. Sodium 133, potassium 4.1, chloride 98, bicarb 23, BUN 16, creatinine 1.1, glucose 187, calcium 9.4. Liver function tests were within normal limits. Pending diagnostic studies at this time are blood cultures, wound culture, hemoglobin A1c, PT, and PTT. PHYSICAL EXAMINATION: VITAL SIGNS: Temperature 100 degrees, heart rate 92, respirations 15, blood pressure 139/78, oxygen saturation is 100%. GENERAL: Mr. Rowe is a very pleasant, 51-year-old, male who is resting comfortably on the ER stretcher. He was in no acute distress. He was awake, alert, and able to answer all questions appropriately. HEENT: Head is atraumatic, normocephalic. Pupils are equal, round, reactive to light. Oral mucosa is moist. NECK: Supple. Trachea midline. CARDIOVASCULAR: Patient has normal S1, S2. No murmurs, gallops, rubs appreciated, with a regular rate and rhythm. PULMONARY: Patient has symmetrical chest expansion bilaterally. Lung sounds clear to auscultation in bilateral full collins. ABDOMEN: Soft. Nondistended. The patient does have a protuberant abdomen noted. No tenderness noted upon palpation. Bowel sounds are present in all 4 quadrants and are normoactive. EXTREMITIES: No cyanosis or clubbing noted. The patient does have some +1 pitting edema noted in the left lower extremity from approximately mid calf down. There is also increased swelling, warmth, and erythema noted in this extremity also. The patient's left leg is considerably much warmer than his right. Pulse, motor, and sensory are intact in all extremities. Pedal pulses were 3+ bilaterally. Capillary refill was less than 3. INTEGUMENTARY: The patient does have a linear-shaped wound noted to his right lateral foot. with a scab noted, though no drainage noted. The patient does have a large, approximately tennis ball in size, wound noted to his left lateral foot, though it has no active drainage at this time, thought his wound was recently cleaned and dressed by ER staff. The patient does report that it has had a clear to pink-tinged drainage noted previously. NEUROLOGICAL: Patient is alert and oriented to person, place, and time. Cranial nerves 2-12 are grossly intact. ASSESSMENT AND PLAN: 1. Osteomyelitis of the left foot. Upon the patient's recent discharge, the patient was instructed to follow up with Dr. Cheema outpatient for which he has done so. There was a recent MRI performed which did not confirm definite presence of osteomyelitis. Due to this, the patient was not discharged on any intravenous antibiotics. Though at this time, he has had fever, body aches, and malaise so we will go ahead and implement intravenous antibiotics at this time of Zosyn and vancomycin. We will await Dr. Cheema's evaluation and recommendations for further management of this. We have also consulted Dr. Rob who was previously seeing the patient as well. We will await his evaluation and further recommendations also. As previously mentioned, blood cultures and wound culture have been obtained, and we will continue to follow this closely. 2. Diabetes mellitus type 2. We will continue the patient on Lantus and have added on a sliding scale insulin. We will hold his oral diabetic medications at this time just so that we can have better control over his glucose levels while he is inpatient. We will do fingerstick blood sugars before meals and at bedtime, and continue to monitor closely. We have also ordered an A1c to be drawn as well. 3. Hypertension. We will continue the patient's Hyzaar and carvedilol. 4. Hyperlipidemia. We will continue his Lipitor. 5. Microcytic anemia. The patient does have a history of iron-deficiency anemia. He did have low iron levels upon previous admission. Though his anemia appears to be stable at this time, we will continue with his ferrous sulfate as prescribed and continue to monitor. The patient will be placed on the medical floor with telemetry. He will have vital signs every 8 hours. We will do strict intake and output. He will be on a diabetic diet. We have also placed a wound care consult for wound care management. We will elevate his left lower extremity. Deep venous thrombosis prophylaxis will be provided with Lovenox 40 mg subcutaneously every 24 hours. Further orders and recommendations pending hospital course, diagnostic studies, and physician evaluation. Dictated by WAYLON Reina for Mj Roy MD Seen,examined and discussed case with HOUSEKEEPING ASSISTANT. cc: Mj Roy MD [facility]
[2016-11-08] MEDS: HUMALOG SUBQ SCH ×4 (07:28→20:56)
--- NOTE | 2016-11-08 08:30 | PROGRESS NOTE ---
DATE: 11/08/2016 CONCLUSION: The patient is admitted to the hospital with fever which I think is due to an infection in his left foot. RECOMMENDATIONS: I agree with starting the patient on vancomycin and Zosyn pending culture results. DISCUSSION: The patient recently was hospitalized. He went home on no antibiotics. Dr. Cheema and I discussed the situation, and we thought it would be better not to start antibiotics and that way when the patient came to Dr. Cheema's office, he could get good cultures and see how the patient's foot looks when it is not being treated with antibiotics. MEDICATIONS: Patient has been started last night on vancomycin and Zosyn with which I agree. PHYSICAL EXAMINATION: Vital Signs: Temperature is 98.9 degrees, pulse 80, respirations 20, blood pressure 132/70. Generally, this is an obese middle-aged male. He is in no acute distress. Lungs clear to auscultation. Cardiovascular: Regular heart rate. Abdomen: Soft and nontender. Extremities: I removed the dressing on the left foot. The foot is erythematous and swollen. There is an open wound which is draining some purulent fluid. There is no odor present. LABORATORY DATA AND X-RAY: CBC shows a white count of 7770, hemoglobin 10.1, and platelet count 367,000. Creatinine 1.1. GFR is greater than 60. Blood cultures and a culture from the patient's left foot are pending. ASSESSMENT AND PLAN: Patient has Charcot arthropathy of the left foot and, also, there is superimposed osteomyelitis. Our plan is to start the patient on vancomycin and Zosyn pending culture results. Dr. Cheema has also been consulted. The patient's comorbidities are diabetes mellitus, neuropathic joint disease, gout, obesity and possibly poor control of diabetes. cc: Durga Rob MD
[2016-11-08] MEDS: HYZAAR 100/12.5 MG TAB PO SCH (09:18)
[2016-11-08] MEDS: FERROUS SULFATE PO SCH (09:18)
[2016-11-08] MEDS: COREG PO SCH ×3 (09:18→20:56)
[2016-11-08] MEDS: ZYLOPRIM PO SCH (09:18)
[2016-11-08] MEDS ORDERED: INSULIN PEN NEEDLES ONE (15:21)
[2016-11-08] MEDS: VANCOMYCIN 1,700 MG in NS 250 ML IV SCH (18:27)
--- NOTE | 2016-11-08 19:20 | PROGRESS NOTE ---
DATE: 11/08/2016 SUBJECTIVE: Mr. Rowe states he is doing pretty good. The foot is about the same evaluate it. Possible need for debridement and osteomyelitis. OBJECTIVE: Vital Signs: Afebrile temp 98.9 degrees. Lungs: Clear in all lung collins. Cardiovascular: Regular rhythm and rate without murmur or S3. Abdomen: Soft. Skin: Warm and dry. REVIEW OF PAST MEDICAL HISTORY: A 51-year-old. He works at [email or web address]. He was recently discharged on 10/31/2016, being treated for osteomyelitis of the left foot. The patient was treated with IV antibiotics and ultimately upon discharge MRI was performed which showed no definite findings for osteomyelitis. Secondary to this patient's IV antibiotics discontinued. 1. He had followup with Dr. Cheema of Orthopedic Surgery outpatient. He reports he did see Dr. Cheema on Saturday in his office. Continue to run a fever after that, increased pain and presented back here. He has had a right foot incision and drainage with hardware placement in May, left foot debridement, some bone removed. He is admitted now for osteomyelitis of left foot followed by Dr. Cheema. A recent MRI performed did not confirm the definite presence of osteomyelitis. 2. Diabetes mellitus type 2. Follow pattern sugars. 3. Hypertension. 4. Hyperlipidemia. 5. Microcytic anemia. PLAN: Continue Zosyn and vancomycin for now. The patient has Charcot arthropathy of the left foot with superimposed osteomyelitis. cc: Elpidio Barahona MD
[2016-11-08] MEDS: LIPITOR PO SCH ×2 (19:35→20:56)
[2016-11-08] MEDS: LANTUS SUBQ SCH (20:56)
--- NOTE | 2016-11-08 21:21 | Diag Imaging Result Doc PS360 ---
EXAM: EXTREM LOWER W/O CONTRAST INDICATION: OSTEO LEFT FOOT TECHNIQUE: COMPARISON: MRI dated 10/29/2016 FINDINGS: There is extremely severe irregularity involving the mid foot with erosions and midfoot collapse consistent with advanced neuropathic foot. This was also seen on the recent MRI. However, there is a prominent soft tissue ulceration at the medial aspect of the plantar surface of the foot with gas droplets extending to the cuboid, which is markedly eroded. There is certainly a component of osteomyelitis, at least involving the cuboid. It is difficult to distinguish erosive changes related to the advanced neuropathic foot from osteomyelitis. But these severe changes are largely due to neuropathy. As was seen on the previous MRI, the fifth metatarsal is completely eroded. IMPRESSION: Advanced neuropathic foot with severe midfoot erosion and bony collapse similar to the recent MRI with a certain component of osteomyelitis, at least involving the cuboid. Please see above discussion. Electronically signed by Shemar Conn 11/08/2016 9:19 PM
[2016-11-09] MEDS: ZOSYN 3.375 GM/NS 3.375 GM/50 ML IVPB IV SCH ×4 (04:01→22:01)
[2016-11-09] MEDS: HUMALOG SUBQ SCH ×4 (06:08→22:03)
[2016-11-09] MEDS: VANCOMYCIN 1,700 MG in NS 250 ML IV SCH ×2 (07:27→22:42)
--- NOTE | 2016-11-09 08:20 | PROGRESS NOTE ---
DATE: 11/09/2016 SUBJECTIVE DATA: Mr. Rowe is currently sitting up in bed, in no acute distress. He denies any pain at present. He denies fever and chills. OBJECTIVE DATA: Left lower extremity: The dressing is basically saturated with drainage. I did not break it down at present. The CT of the left foot does confirm osteomyelitis. He does have a weak pedal pulse. ASSESSMENT: Osteomyelitis of the left foot. PLAN: Dr. Cheema has discussed with Mr. Rowe the likelihood of amputation. He discussed several surgical options with him as well as a Charcot repair. Because of the extent of the neuropathic damage as well as osteomyelitis, amputation is probably the best bet for Mr. Rowe at this time. Dr. Corona had done the previous revision to the foot. Dr. Cheema has talked with Dr. Corona and Dr. Corona would like to do the amputation. Mr. Rowe does agree with amputation at this time. So, we will plan to make him NPO and hopefully get him in today with Dr. Corona. Dictated by WAYLON Haskins for Linden Cheema MD cc: WAYLON Haskins MD
[2016-11-09] MEDS ORDERED: DIPRIVAN 1% ONE (10:22)
[2016-11-09] MEDS ORDERED: ZOFRAN ONE (10:22)
[2016-11-09] MEDS ORDERED: ROBINUL ONE (10:22)
[2016-11-09] MEDS ORDERED: XYLOCAINE-MPF 2% ONE (10:22)
[2016-11-09] MEDS ORDERED: FENTANYL ONE ×3 (10:23→12:41)
--- NOTE | 2016-11-09 10:35 | PROGRESS NOTE ---
DATE: 11/09/2016 SUBJECTIVE: Mr. Rowe understands the plan. He understands they are going to proceed with amputation of his foot and he is ready to proceed with that. OBJECTIVE: Vital Signs: Temperature 98.3 degrees, pulse 83, respirations 12, blood pressure 132/67. HEENT: Pupils are equal and round. Lungs: Clear in all lung collins. Cardiovascular: Regular rhythm and rate, without murmur or S3. Abdomen: Soft. Skin: Warm and dry. URINE OUTPUT: 2400 mL. LABORATORY AND IMAGING: Reviewed from 11/08/2016. White count 7770, hematocrit 32, platelet count 367,000. Blood sugars 193, 147, and 138. Lower extremity CT done yesterday: Advanced neuropathic foot with severe midfoot erosion and bony collapse similar to the recent MRI with a certain component of osteomyelitis, at least involving the cuboid. ASSESSMENT AND PLAN: Osteomyelitis of the left foot. Proceed with amputation. Discussed several options, including surgical options as well as Charcot repair. Because of the extent of neuropathic damage as well as osteomyelitis, amputation is his best choice. Dr. Cheema to proceed. Talked to Dr. Corona and they plan on doing an amputation. REVIEW OF ORDERS: I do not see any change at this point. cc: Elpidoi Barahona MD
--- NOTE | 2016-11-09 10:38 | PROGRESS NOTE ---
DATE: 11/09/2016 PRESENT ILLNESS: The patient has advanced Charcot arthropathy in the left foot and on CT scan, which was repeated yesterday, he also has osteomyelitis present. MEDICATIONS: The patient is on a combination of vancomycin and Zosyn. PHYSICAL EXAMINATION: Vital Signs: Temperature is 98.3 degrees, pulse 83, respirations 12, blood pressure 132/67. General: This is an obese, but otherwise healthy-appearing, middle-aged male. He is in no acute distress. Lungs: Clear to auscultation. Cardiovascular: Regular heart rate. Abdomen: Soft and nontender. Extremities: The patient has a large dressing around the left foot. There is a serosanguineous drainage on the dressing. LAB AND X-RAY: There are no new lab studies today. The culture from the left foot is growing a gram-negative kenton. Blood cultures are pending. MRI of the left foot, as mentioned above, shows findings consistent with Charcot arthropathy and osteomyelitis. ASSESSMENT AND PLAN: The patient is scheduled to have a [id number] amputation of the left foot today. Also, I plan to continue with the patient's current antibiotics. COMORBIDITIES: This patient include diabetes mellitus, neuropathic joint disease, gout, obesity, and possibly poor diabetic control. cc: Durga Rob MD
[2016-11-09] MEDS: COREG PO SCH ×2 (11:29→22:02)
[2016-11-09] MEDS: ZYLOPRIM PO SCH (11:29)
[2016-11-09] MEDS: HYZAAR 100/12.5 MG TAB PO SCH (11:30)
[2016-11-09] MEDS: FERROUS SULFATE PO SCH (11:31)
--- NOTE | 2016-11-09 12:33 | CONSULTATION ---
DATE OF CONSULTATION: 11/09/2016 REASON FOR CONSULTATION: Left foot osteomyelitis with diabetic foot infection and diabetic foot ulcer. These are nonhealing. He needs a BKA. HISTORY OF PRESENT ILLNESS: This is a 51-year-old male with diabetes and chronic Charcot deformities of his feet, the left is worse than the right. He is well known to me. I have previously debrided his left foot multiple times. He has been through multiple rounds of IV antibiotics, as well as oral antibiotics and we have tried offloading serial debridements and wound care and a negative pressure wound therapy. Unfortunately, he has continued to have swelling, pain, redness and now fevers over the last few weeks. I have referred him to Dr. Cheema for consideration of any salvage procedure for his foot to correct the underlying Charcot deformity. However, Dr. Cheema and the patient have decided that this is not a good option. He does not have a good chance of success and would have a likely prolonged, complicated course and ultimately, Dr. Cheema and the patient both feel he would do better from a below-knee amputation. This is also what I had been thinking and had explained to the patient prior to his referral to Dr. Cheema and I am here today to just talk to him and make plans for this as he has failed more conservative measures. PAST MEDICAL HISTORY: Diabetes mellitus, hypertension, hyperlipidemia, obstructive sleep apnea, gout. PAST SURGICAL HISTORY: Right foot incision and drainage and hardware placement in 2016. Left foot debridement. ALLERGIES: No known drug allergies. SOCIAL HISTORY: Negative for tobacco, alcohol, or illicit drug use. He is and works as a nurse at [employer] in [place]. FAMILY HISTORY: Positive for diabetes and COPD. CURRENT MEDICATIONS: Allopurinol, Lipitor, Coreg, ferrous sulfate, Hyzaar, Lantus, vancomycin, Zosyn and Lovenox. REVIEW OF SYSTEMS: Positive for fevers, malaise, 1 episode of nausea and vomiting, and left foot and leg pain and swelling. Otherwise, 10 systems reviewed and are negative except as noted above. PHYSICAL EXAMINATION: Vital Signs: His max temperature last night was 102.4, currently 98.3. Pulse 83, respirations 12, blood pressure 132/67. General: He is a well-developed, well- nourished male, in no distress who looks his stated age. HEENT: Normocephalic, atraumatic. Extraocular muscles intact. Pupils equal, round, reactive to light. Sclerae anicteric. Neck: Supple. No thyromegaly. CV: Regular rate and rhythm. Respiratory: Clear equal breath sounds. No work of breathing. GI: Soft, nontender, nondistended. No organomegaly or mass. Extremities: No clubbing or cyanosis. He does have a Charcot deformity, the left foot worse than the right. There is a large open wound on the left lateral foot with some granulation tissue and some nonhealing soft tissue and exposed bone. The drainage appears to be serous. The left foot is swollen, warm and red, and this extends up into the anterior lower leg. Skin: Warm and dry. No rash. Musculoskeletal: Moves all extremities equally and well. LABORATORY: White blood cell count 7, hemoglobin 10. INR 1.1. Complete metabolic profile reviewed and unremarkable. Hemoglobin A1c is 7.8. IMAGING: A CT scan of his left lower extremity reveals an advanced neuropathic foot with severe midfoot erosion and bony collapse with osteomyelitis of the at least the cuboid bone. ASSESSMENT/PLAN: A 51-year-old male with osteomyelitis of the left foot, diabetic foot ulcer, and diabetic foot infection. This is nonhealing for several months now all and worsening. He is failing conservative measures. I do think he would benefit from a left below-knee amputation. We discussed the risks, including bleeding, wound infection, wound dehiscence, chronic pain, DVT, pneumonia and other imponderables. He understands and agrees to proceed. cc: Tray Corona MD
[2016-11-09] MEDS: DILAUDID ONE ×4 (13:44→17:21)
[2016-11-09] MEDS ORDERED: PHENERGAN ONE (14:34)
[2016-11-09] MEDS: NORCO-10 PO PRN ×2 (15:39→22:01)
--- NOTE | 2016-11-09 16:04 | OPERATIVE NOTE ---
PROCEDURE DATE: 11/09/2016 PREOPERATIVE DIAGNOSES: 1. Nonhealing diabetic foot ulcer. 2. Left diabetic foot infection. 3. Left Charcot foot. 4. Osteomyelitis of left foot. POSTOPERATIVE DIAGNOSES: 1. Nonhealing diabetic foot ulcer. 2. Left diabetic foot infection. 3. Left Charcot foot. 4. Osteomyelitis of left foot. PROCEDURE: Left below-knee amputation. SURGEON: Tray Corona MD. ANESTHESIA: General. ESTIMATED BLOOD LOSS: 500 mL. COMPLICATIONS: None apparent. SPECIMENS: Left below-knee amputation. FINDINGS: The muscle flap and skin had good vascularity. There were no signs of any gross purulence in the soft tissues of our wound. TECHNIQUE: The patient was brought to the operating room and placed supine on the table. General anesthesia was induced. He was prepped and draped in usual sterile fashion. A horizontal incision was made fci around the anterior lower leg on the left one handsbreadth below the tibial tuberosity. This was carried down through the dermis sharply with a knife. Multiple superficial arterial and venous bleeders were controlled with either cautery or clamping and tying with 3-0 silk. We continued to divide the lateral muscular compartments with cautery. We encountered the peroneal artery and vein and individually clamped, divided with scissors and ligated with 2-0 silk proximally and distally. This was done with a 2-0 stick tie on the proximal side. I then divided the medial muscles in the same fashion and individually clamped and ligated as described above small tributaries and muscular perforating vessels. I then divided the posterior skin flap leaving it long posteriorly with a knife around the skin and cautery through the soft tissue and fascia layer. We cleaned off the muscle and periosteum over the tibia with a periosteal elevator proximally. I got at least 1 inch of bone exposed from below the skin incision to a location 1 inch proximally. I also cleaned off the fibula in the same fashion proximally. The fibula was then divided with the oscillating saw. I initially tried to divide the tibia with a Gigli saw but it broke. I then brought in the oscillating saw and completed the tibial division. This was done with a slightly angled edge. I then divided the remaining muscular and soft tissue attachments with the amputation knife. The tibial artery and vein were divided and bleeding and a tourniquet was placed and inflated on the distal thigh. I then worked to individually clamp and ligate the branches of the tibial artery and vein. Several 2-0 silk stick ties were placed on the individual vessels. The tibial nerve was retracted and divided proximally with Metzenbaum scissors and allowed to retract up into the muscle bed. There was posterior gastrocnemius perforating venous and arterial vessels which were individually ligated in the same fashion and with 3-0 silk rplhpj-oc-woeqx stick ties. I then let down the tourniquet. There was minimal ooze from the muscle bed which was controlled with cautery. No arterial bleeding was encountered or large venous vessels were encountered that remained to be ligated. I then irrigated the wound out copiously with saline and was satisfied with the hemostasis. I then approximated the fascia with interrupted 0 Vicryl yrvfbf-ku-lgsqe sutures. There was good approximation of the fascia and good soft tissue coverage of the tibia and fibula. The skin was then approximated with skin clips. A sterile dressing and knee immobilizer were placed. There were no apparent complications. He was awakened in stable condition and transferred to the recovery room. cc: Tray Corona MD
[2016-11-09] MEDS: DILAUDID IV PRN ×3 (17:26→22:45)
[2016-11-09] MEDS: LIPITOR PO SCH (22:01)
[2016-11-09] MEDS: PERIDEX MT SCH (22:01)
[2016-11-09] MEDS: LANTUS SUBQ SCH (22:03)
[2016-11-10] MEDS: DILAUDID IV PRN ×8 (02:15→22:24)
[2016-11-10] MEDS: ZOSYN 3.375 GM/NS 3.375 GM/50 ML IVPB IV SCH ×5 (04:35→22:26)
[2016-11-10] MEDS: NORCO-10 PO PRN ×2 (06:51→20:12)
[2016-11-10] MEDS: HUMALOG SUBQ SCH ×4 (06:52→20:17)
[2016-11-10] MEDS: LOVENOX SUBQ SCH ×2 (08:00→11:00)
[2016-11-10] MEDS: PERIDEX MT SCH ×3 (08:00→20:12)
[2016-11-10] MEDS: ZYLOPRIM PO SCH ×2 (08:00→11:00)
[2016-11-10] MEDS: FERROUS SULFATE PO SCH ×2 (08:00→11:00)
[2016-11-10] MEDS: HYZAAR 100/12.5 MG TAB PO SCH (08:01)
[2016-11-10] MEDS: COREG PO SCH ×3 (08:01→20:13)
--- NOTE | 2016-11-10 11:06 | PROGRESS NOTE ---
DATE: 11/10/2016 SUBJECTIVE: Mr. Rowe is now postop day 1 from a left vwxwj-eba-bmnv amputation per Dr. Corona. His OBJECTIVE: Wound is dry. He has a knee immobilizer in place. He is awake, cooperative, feels comfortable. We will continue supportive care at this time. Saturday, physical therapy needs to see the patient and also social contact worker so we can decide his disposition, whether it is going to a rehab hospital versus home with home physical therapy. He will need a prosthetic, and we need to work so that he is fitted for that as his wound heals. cc: Vivi Lara MD
--- NOTE | 2016-11-10 12:14 | PROGRESS NOTE ---
DATE: 11/10/2016 SUBJECTIVE: Status post left pgkuo-rwy-szww amputation. Is in good spirits. His was there. She spent the night, sleeping in the recliner. OBJECTIVE: Vital Signs: Remains afebrile with temperature 100 degrees, pulse 98, respirations 18, blood pressure 143/72. HEENT: Pupils are equal and round. Neck: CVP less than 6 cm. Lungs: Clear in all lung collins. Cardiovascular: Regular rhythm and rate, without murmur or S3. Abdomen: Soft. Skin: Warm and dry. URINE OUTPUT: Over 4 L. LABORATORY: Lab from 11/08/2016 reviewed. Hematocrit 32. Blood sugars 138, 194, and 203. ASSESSMENT AND PLAN: 1. Advanced Charcot arthropathy, left foot. CT scan with extensive osteomyelitis. Status post left supdb-jau-lwek amputation. Continue vancomycin and Zosyn. 2. Diabetes mellitus, type 2. Sugar is under good control. 3. Will follow electrolytes and renal function closely. REVIEW OF ORDERS: I do not see any changes. cc: Elpidio Barahona MD
[2016-11-10] MEDS: VANCOMYCIN 1,700 MG in NS 250 ML IV SCH ×2 (12:33→22:20)
[2016-11-10] MEDS: LANTUS SUBQ SCH (20:11)
[2016-11-10] MEDS: LIPITOR PO SCH (20:14)
[2016-11-11] MEDS: DILAUDID IV PRN ×5 (02:11→22:15)
[2016-11-11] MEDS: NORCO-10 PO PRN ×2 (03:11→20:33)
[2016-11-11] MEDS: ZOSYN 3.375 GM/NS 3.375 GM/50 ML IVPB IV SCH (03:12)
[2016-11-11 06:22] LABS: MANUAL DIFF NEEDED? NO
[2016-11-11] MEDS: HUMALOG SUBQ SCH ×4 (06:28→20:41)
[2016-11-11 06:33] LABS: BASO% 0.3 % (0.0-0.8); EOS# 0.12 X1000 (0.0-0.7); HEMATOCRIT 23.6 % (42.0-52.0); HEMOGLOBIN 7.3 g/dL (14.0-18.0); IMM GRAN# 0.03 X1000 (0.0-0.04); IMM GRAN% 0.5 % (0.0-0.5); LYMPH% 27.1 % (20.5-51.1); MCH 24.4 PG (27-31); MCHC 30.9 g/dL (33-37); MCV 78.9 FL (81-99); MONO# 0.81 X1000 (0.11-0.59); MONO% 13.7 % (1.7-9.3); MPV 10.1 FL (7.4-10.4); NEUT% 56.4 % (42.2-75.2); PLT 318 X1000 (130-400); RBC 2.99 XMIL (4.7-6.1)
[2016-11-11 07:10] LABS: AGAP 12; ALBUMIN 2.6 g/dL (3.5-5.0); ALKALINE PHOSPHATASE 118 U/L (32-122); BUN 11 mg/dL (8-22); CALCIUM 8.1 mg/dL (8.8-10.2); CHLORIDE 97 mmol/L (98-107); COSMO 272; GOT 55 U/L (10-34); GPT 51 U/L (10-44); MAGNESIUM 2.1 mg/dL (1.5-2.7); SODIUM 133 mmol/L (136-145); TCO2 24 mmol/L (25-35); TOTAL BILIRUBIN 0.36 mg/dL (0.20-1.00)
[2016-11-11] MEDS: COREG PO SCH ×2 (09:13→20:33)
[2016-11-11] MEDS: ZYLOPRIM PO SCH (09:13)
[2016-11-11] MEDS: FERROUS SULFATE PO SCH (09:13)
[2016-11-11] MEDS: HYZAAR 100/12.5 MG TAB PO SCH (09:13)
[2016-11-11] MEDS: PERIDEX MT SCH ×2 (09:14→20:33)
[2016-11-11] MEDS: LOVENOX SUBQ SCH (09:14)
--- NOTE | 2016-11-11 09:31 | PROGRESS NOTE ---
DATE: 11/11/2016 SUBJECTIVE: Mr. Rowe is now postop day 2 from a left below the knee amputation per Dr. Corona. He is awake, sitting up in the bed, eating breakfast. Appears to be comfortable. The wound is dry. He has a knee immobilizer in place. His knee is extended. OBJECTIVE: His heart rate is 85. Blood pressure 118/86, O2 saturation 97%. He is voiding without difficulty. He is eating well. His sugars are pretty well controlled. His hematocrit is 24. His white blood cell counts normal. Electrolytes are within normal limits. BUN is 11 and creatinine 1. PLAN: We will get social worker involved tomorrow. The question is whether he needs home physical therapy versus rehab at a facility such as [facility]. He already has a prosthetic company which is [employer]. We need our physical therapist to evaluate the patient tomorrow. We need to watch his anemia. He will be ready for discharge in the next 24-48 hours. cc: Vivi Lara MD
[2016-11-11] MEDS ORDERED: PATIENT'S OWN MED SUBQ SCH (12:30)
--- NOTE | 2016-11-11 14:00 | PROGRESS NOTE ---
DATE: 11/11/2016 SUBJECTIVE: Feeling good, doing well, pain controlled. EXAM: Vital signs: Temperature 98.7 degrees, pulse 86, respirations 20, blood pressure 135/71. HEENT: Pupils are equal, round. Lungs: Clear in all lung collins. Cardiovascular: Regular rhythm, rate without murmur, S3. Abdomen: Soft. Skin: Warm and dry. Urine output 4 L. LAB: White count 5900, hematocrit 23, platelet count 318,000. Chemistry, sodium 133, potassium 4.0, chloride 97, BUN 11, creatinine 1.0, blood sugar 241, 216, 216. ASSESSMENT AND PLAN: 1. Postop day 2 left vnkhx-fef-yqls amputation per Dr. Corona doing well and he is trying to figure out whether he wants go home health versus rehab. 2. Blood sugars well controlled. They have been running high recent postop so continue his current medications, will get him back on his home medications. cc: Elpidio Barahona MD
[2016-11-11] MEDS: GLUCOPHAGE PO SCH (17:17)
[2016-11-11] MEDS: LANTUS SUBQ SCH (20:33)
[2016-11-11] MEDS: LIPITOR PO SCH (20:33)
[2016-11-11] MEDS: DIABETA PO SCH (20:33)
[2016-11-11] MEDS: COLACE PO SCH (21:34)
[2016-11-12] MEDS: DILAUDID IV PRN (01:33)
[2016-11-12] MEDS: NORCO-10 PO PRN ×2 (05:28→21:13)
[2016-11-12] MEDS: HUMALOG SUBQ SCH ×4 (06:15→21:12)
[2016-11-12] MEDS ORDERED: VANCOMYCIN IV PER PHARMACY MISC SCH (08:15)
[2016-11-12] MEDS: GLUCOPHAGE PO SCH ×2 (08:24→17:27)
[2016-11-12] MEDS: COLACE PO SCH ×2 (08:24→21:02)
[2016-11-12] MEDS: PERIDEX MT SCH ×2 (08:24→21:03)
[2016-11-12] MEDS: FERROUS SULFATE PO SCH (08:24)
[2016-11-12] MEDS: ZYLOPRIM PO SCH (08:25)
[2016-11-12] MEDS: DIABETA PO SCH ×2 (08:25→21:03)
[2016-11-12] MEDS: HYZAAR 100/12.5 MG TAB PO SCH (08:25)
[2016-11-12] MEDS: LOVENOX SUBQ SCH (08:25)
--- NOTE | 2016-11-12 08:46 | PROGRESS NOTE ---
DATE: 11/12/2016 PRESENT ILLNESS: The patient is status post left BKA for advanced Charcot arthropathy with osteomyelitis. Yesterday, vancomycin and Zosyn were stopped. MEDICATION: Antibiotics were stopped yesterday. PHYSICAL EXAMINATION: Vital Signs: Temperature is 97.8 degrees, pulse 73, respirations 20, blood pressure 114/79. General: This is a obese but otherwise healthy-appearing, middle-aged male who is in no acute distress. Lungs: Clear to auscultation. Cardiovascular: Regular heart rate. Abdomen: Soft and nontender. Extremities: The left leg is in an immobilizer. LABORATORY/X-RAY: The CBC shows a white count of 5900, hemoglobin 7.3 and platelet count 318,000 creatinine is 1.0. GFR is greater than 60. There is no other new lab and no radiology results for today. ASSESSMENT AND PLAN: Patient is status post left xifoc-dwa-mvfh amputation. For now, I am going to continue his IV antibiotics. COMORBIDITIES: Include diabetes mellitus, neuropathic joint disease, gout, obesity, and possibly poor diabetic control. cc: Durga Rob MD MTDD
[2016-11-12] MEDS ORDERED: VITAMIN D PO SCH (09:00)
[2016-11-12 09:25] LABS: MANUAL DIFF NEEDED? NO
[2016-11-12] MEDS: PATIENT'S OWN MED PO SCH (09:30)
[2016-11-12] MEDS: COREG PO SCH ×2 (09:30→21:02)
[2016-11-12 09:43] LABS: BASO% 0.5 % (0.0-0.8); EOS# 0.18 X1000 (0.0-0.7); EOS% 3.3 % (0.0-10.0); HEMATOCRIT 26.1 % (42.0-52.0); HEMOGLOBIN 7.9 g/dL (14.0-18.0); IMM GRAN# 0.05 X1000 (0.0-0.04); IMM GRAN% 0.9 % (0.0-0.5); LYMPH# 1.34 X1000 (1.2-3.4); LYMPH% 24.4 % (20.5-51.1); MCH 23.8 PG (27-31); MCHC 30.3 g/dL (33-37); MCV 78.6 FL (81-99); MONO# 0.54 X1000 (0.11-0.59); MONO% 9.8 % (1.7-9.3); MPV 9.5 FL (7.4-10.4); NEUT% 61.1 % (42.2-75.2); PLT 353 X1000 (130-400); RBC 3.32 XMIL (4.7-6.1)
--- NOTE | 2016-11-12 10:04 | PROGRESS NOTE ---
DATE: 11/12/2016 SUBJECTIVE: Mr. Rowe has had a good night. Doing well. Eating well. His vision was a little blurry, transient. I suspect this is related to his blood sugar. PHYSICAL EXAMINATION: Vital Signs: Temperature 97.8 degrees, pulse 70, respirations 20, blood pressure 141/79. HEENT: Pupils are equal and round. Lungs: Are clear in all lung collins. Cardiovascular Examination: Regular rhythm and rate without murmur or S3. Abdomen: Soft. Skin: Is warm and dry. Is and Os: Urine output 2300 mL. LAB: Reviewed from the , from yesterday, unremarkable. Blood sugars have come down to 234, 262, 133. He is back on his oral medications. ASSESSMENT: Blood loss anemia. Hemoglobin is 7.3, hematocrit is 23. He is on iron. PLAN: Discuss our plans from here and how long he needs to have antibiotics, see what we have planned. cc: Elpidio Barahona MD
[2016-11-12] MEDS: ZOSYN 3.375 GM/NS 3.375 GM/50 ML IVPB IV SCH ×3 (10:37→21:02)
[2016-11-12] MEDS: VANCOMYCIN 1,600 MG in NS 250 ML IV SCH ×2 (11:40→21:59)
--- NOTE | 2016-11-12 18:07 | PROGRESS NOTE ---
DATE: 11/12/2016 Mr. Rowe status post left below the knee amputation per Dr. Corona. He is now postop day 3. Will either discharge him home with home physical therapy or to a rehab hospital. [facility] is supposed to see him tomorrow. His wound remains dressed and dry and he is up walking on a walker. His heart rate is 83, blood pressure 151/72, O2 saturation is 100%. He is voiding without difficulty. He is eating a regular diet. He is afebrile. His white blood cell counts normal. His hematocrit is stable at 26%. Once we get a disposition we will get him home. cc: Vivi Lara MD
[2016-11-12] MEDS: LIPITOR PO SCH (21:02)
[2016-11-12] MEDS: LANTUS SUBQ SCH (21:03)
[2016-11-13] MEDS: ZOSYN 3.375 GM/NS 3.375 GM/50 ML IVPB IV SCH (01:31)
[2016-11-13] MEDS: NORCO-10 PO PRN ×2 (05:21→12:02)
[2016-11-13] MEDS: GLUCOPHAGE PO SCH (09:56)
[2016-11-13] MEDS: FERROUS SULFATE PO SCH (09:56)
[2016-11-13] MEDS: HYZAAR 100/12.5 MG TAB PO SCH (09:56)
[2016-11-13] MEDS: COLACE PO SCH (09:56)
[2016-11-13] MEDS: COREG PO SCH (09:56)
[2016-11-13] MEDS: DIABETA PO SCH (09:56)
[2016-11-13] MEDS: ZYLOPRIM PO SCH (09:56)
[2016-11-13] MEDS: PERIDEX MT SCH (09:57)
[2016-11-13] MEDS: PATIENT'S OWN MED PO SCH (09:57)
[2016-11-13] MEDS: LOVENOX SUBQ SCH (09:57)
--- NOTE | 2016-11-13 13:00 | DISCHARGE SUMMARY ---
ADMISSION DATE: 11/07/2016 DISCHARGE DATE: 11/13/2106 He is followed by Dr. Ying Abel. Recently discharged on 10/31/2016 after being treated in the hospital for osteomyelitis left foot. The patient was treated with IV antibiotics and on discharge MRI was performed which showed no definite findings of osteomyelitis at that time. Secondary to this patient's IV antibiotics were discontinued. Discharged and followed by Dr. Cheema, Orthopedic Surgery. Followed up with Dr. Cheema in his office, he was running fever, had some increased pain. He was admitted to the hospital and found to have significant midfoot osteomyelitis. Lower extremity CT done on 11/08, advanced neuropathic foot, severe midfoot erosion, bony collapse and recent MRI but with a certain component of osteomyelitis appreciated involving the cuboid. Elected to have wiwxm-wnu-jyzs amputation which he underwent, Dr. Corona and he did well postop. [place] ready for discharge. Still unclear whether he is going to go to rehab or go home with home health but discharged on 11/13/2016. DISCHARGE MEDICATIONS: Were 30 mg subcu q.week. Zyloprim 300 mg q.a.m. Lipitor 20 mg at bedtime. Coreg 6.25 mg b.i.d. Colace 100 mg b.i.d. Jardiance 10 mg p.o. q.a.m. Vitamin D 72540 units p.o. q.week. Ferrous sulfate 325 mg a day. DiaBeta 5 mg b.i.d. Hyzaar 1 daily. [place] 10 1 q.6 hours p.r.n., I gave him 40 of those. Lantus 30 units subcutaneously at bedtime. Glucophage 1000 mg p.o. b.i.d. cc: Elpidio Barahona MD
[2016-11-13 16:31] VITALS: BP 141/62
--- NOTE | 2016-11-14 06:29 | DISCHARGE SUMMARY ---
ADMISSION DATE: 11/07/2016 DISCHARGE DATE: 11/13/2016 ADMITTING DIAGNOSIS: 1. Osteomyelitis, left foot. 2. Diabetic neuropathy. DISCHARGE DIAGNOSES: 1. Osteomyelitis, left foot. 2. Diabetic neuropathy. PRINCIPAL PROCEDURE: Left zuvmc-jgy-pgkc amputation per Dr. Tray Corona on 11/09/2016. DISCHARGE DIET: A diabetic diet. DISCHARGE MEDICATIONS: He is to return to his home medication except [place] 7.5 for pain. DISCHARGE DISABILITY: Full. DISCHARGE DISPOSITION: He will return to see us in our outpatient offices in approximately 10 days for a wound check. We will connect him with a prosthetic company. HOSPITAL COURSE: Mr. Kilo Rowe is a 51-year-old white male diabetic who presented through our emergency department on 11/08/2016. He underwent a lower extremity CT of the left lower extremity, which suggested neuropathic diabetic changes of the left foot and osteomyelitis. Dr. Corona and Dr. Rob were consulted. He underwent a left bgtuh-xwx-lqti amputation on 11/09/2016, and we feel that his postoperative convalescence has been normal. On postoperative day 4, his dressings were taken down, and his below the knee amputation incision is healing well. He had good movement of his knee. He was off his antibiotics and afebrile. It was felt safe to discharge him to his home under the care of his with home physical therapy. We will also get him in touch with a prosthetic company. He will follow up with Dr. Corona in approximately 10 days for a wound check. They know to contact us with any problems. At discharge, his white blood cell count was normal. His hematocrit was 26%. He was afebrile. Heart rate 69, blood pressure 143/68, and O2 saturation 98%. He was eating his meals, and he had regular bowel movements. His serum glucose was satisfactory. His BUN and creatinine were 11 and 1. Liver function tests were essentially normal. cc: Vivi Lara MD
== END 2016-11-13 16:31 | disposition home health service (06) ==
LOC: ED 22:51 → 4N 11-08 03:42 → SUATTDRO 11-08 03:42 → 4N 11-09 19:41
PROVIDERS: ATTEND Emergency Medicine

== ENCOUNTER 2018-05-08 14:21 | Inpatient (IN) ==
[2018-05-08] MEDS ORDERED: NS 1,000 ML IV ONE (14:46)
[2018-05-08] MEDS ORDERED: TYLENOL PO ONE (14:46)
[2018-05-08] MEDS ORDERED: ZOSYN 3.375 GM in NS 50 ML IV ONE (14:46)
[2018-05-08] MEDS: VANCOMYCIN 1 GM/NS 1 GM/250 ML IVPB IV ONE ×2 (14:56→16:48)
[2018-05-08 15:18] LABS: BE -0.8 mmoll (-3.0-3.0); BLOOD TYPE ARTERIAL; HCO3-(ACT) 24.2 mmoll (20.0-26.0); O2(CT) 19.6 mL/dL (15.0-23.0); O2HB 92.8 % (95.0-99.0); PCO2(98.6) 31 mmHg (35-45); PO2(98.6) 68 mmHg (60-100); SAMPLE BLOOD; SAO2 93.1 % (95.0-100.0); pH(98.6) 7.46 (7.35-7.45)
[2018-05-08 15:21] LABS: ALLEN TEST YES; MODALITY ROOM AIR
[2018-05-08 15:56] LABS: BILIRUBIN URINE NEGATIVE (NEGATIVE); BLOOD URINE 1+ (NEGATIVE); CLARITY CLEAR (CLEAR); COLOR YELLOW; KETONE URINE TRACE mg/dL (NEGATIVE); LEUKOCYTES URINE TRACE (NEGATIVE); NITRITE URINE NEGATIVE (NEGATIVE); PH URINE 6.5; PROTEIN URINE 1+(30 mg/dL) mg/dL (NEGATIVE); URINE BACTERIA 1+ /HFP; URINE CAST NONE SEEN /LPF; URINE CRYSTAL NONE SEEN /HPF; URINE EPITHELIAL CELLS <10 /HPF (<10); URINE RBC <10 /HPF (<10); URINE SOURCE CLEAN CATCH; URINE WBC <10 /HPF (<10); URINE YEAST NONE SEEN /HPF; UROBILINOGEN URINE NORMAL
[2018-05-08 16:06] LABS: BASO# 0.02 X1000 (0.0-0.2); BASO% 0.1 % (0.0-0.8); EOS# 0.01 X1000 (0.0-0.7); EOS% 0.1 % (0.0-10.0); HEMATOCRIT 43.8 % (42.0-52.0); IMM GRAN# 0.05 X1000 (0.0-0.04); IMM GRAN% 0.3 % (0.0-0.5); LYMPH% 5.4 % (20.5-51.1); MCH 31.1 PG (27-31); MCHC 34.2 g/dL (33-37); MCV 90.9 FL (81-99); MONO% 4.1 % (1.7-9.3); MPV 10.8 FL (7.4-10.4); NEUT# 13.29 X1000 (1.4-6.5); PLT 194 X1000 (130-400); RBC 4.82 XMIL (4.7-6.1); WBC 14.77 X1000 (4.8-10.8)
[2018-05-08 16:23] LABS: AGAP 14; ALKALINE PHOSPHATASE 72 U/L (32-122); BUN 16 mg/dL (8-22); CALCIUM 9.6 mg/dL (8.8-10.2); CHLORIDE 100 mmol/L (98-107); COSMO 283; CREATININE 1.2 mg/dL (0.7-1.2); ESTIMATED GFR > 60; GLUCOSE 206 mg/dL (70-104); GOT 44 U/L (10-34); GPT 66 U/L (10-44); MAGNESIUM 1.8 mg/dL (1.5-2.7); POTASSIUM 4.2 mmol/L (3.5-5.1); SODIUM 138 mmol/L (136-145); TCO2 24 mmol/L (25-35); TOTAL PROTEIN 7.5 g/dL (6.3-8.3)
[2018-05-08 16:24] LABS: INR 1.04; PROTIME 14.1 Seconds (11.0-16.0)
--- NOTE | 2018-05-08 16:29 | Diag Imaging Result Doc PS360 ---
EXAM: CHEST-2 VIEWS - 05/08/2018 HISTORY: short of breath TECHNIQUE: Chest two views COMPARISON: 06/10/2016 FINDINGS: Heart size is normal. Inspiration is mildly shallow. There is apparent ill-defined mild infrahilar infiltrate on the right. There is no dense consolidation, pleural effusion, or pneumothorax identified. IMPRESSION: Mildly shallow inspiration. Mild infrahilar infiltrate on the right. Bronchopneumonia cannot be excluded. Electronically signed by Isaiah Rodriguez 05/08/2018 4:27 PM
--- NOTE | 2018-05-08 16:34 | Diag Imaging Result Doc PS360 ---
EXAM: LOWER LEG-RIGHT - 05/08/2018 HISTORY: cellulitis TECHNIQUE: Right lower leg four views COMPARISON: None. FINDINGS: There are degenerative changes at the ankle which are most prominent at the articulation between the fibula and talus. There is smooth cortical thickening along the posterior margin of the distal fibula which is likely long-standing, and may relate to old fracture or stress fracture. There is no discrete acute fracture identified. There are no discrete erosive or destructive changes identified. There is hypertrophic bony spurring noted at the anterior patella. IMPRESSION: Degenerative changes of ankle, most prominent laterally. Probably chronic cortical thickening along posterior margin of distal fibula. No discrete acute process. Electronically signed by Isaiah Rodriguez 05/08/2018 4:32 PM
[2018-05-08 16:38] LABS: ACETONE SERUM NEGATIVE (NEGATIVE)
--- NOTE | 2018-05-08 16:38 | Diag Imaging Result Doc PS360 ---
EXAM: FOOT COMPLETE RIGHT - 05/08/2018 HISTORY: cellulitis TECHNIQUE: Right foot three views COMPARISON: 10/28/2016 FINDINGS: There are postsurgical changes with metallic screws at the posterior calcaneus similar to prior. There are postsurgical changes with metallic screws at the proximal first metatarsal similar to prior. There is an old incompletely united fracture at the junction of the base and shaft of the fifth metatarsal (Wesley fracture). There is no other acute fracture or dislocation identified. There are no acute bony erosive or destructive changes identified. IMPRESSION: Postsurgical changes. Old incompletely united Wesley fracture at proximal fifth metatarsal. No indication of osteomyelitis. Please note that early osteomyelitis can be radiographically occult. Electronically signed by Isaiah Rodriguez 05/08/2018 4:36 PM
[2018-05-08] MEDS ORDERED: MOTRIN PO ONE (16:51)
[2018-05-08 17:23] LABS: SED RATE 39 mm/hr (0-15)
--- NOTE | 2018-05-08 17:40 | EKG Report ---
Test Performed on : 05/08/2018 2:54:03 PM Test Reason : sepsis Blood Pressure : / mmHG Vent. Rate : 099 BPM Atrial Rate : 099 BPM P-R Int : 164 ms QRS Dur : 100 ms QT Int : 340 ms P-R-T Axes : 031 -11 021 degrees QTc Int : 436 ms Normal sinus rhythm. Incomplete right bundle branch block Inferior infarct (cited on or before 28-MAY-2016) Cannot rule out Anterior infarct , age undetermined Abnormal ECG When compared with ECG of 28-MAY-2016 14:52, Minimal criteria for Anterior infarct are now present Unconfirmed Result
--- NOTE | 2018-05-08 17:58 | PROVIDER DOCUMENTATION ---
This chart was entered by Razia Garduno Scribe, acting as scribe for Fransisco Alvarez MD. HPI-General Adult - General Chief Complaint: Extremity Pain Stated Complaint: CELLULITIS RIGHT FOOT Time Seen by Provider: 05/08/18 14:33 Source: patient Allergies/Adverse Reactions: Patient Allergies Allergy/AdvReac Type Severity Reaction Status Date / Time No Known Allergies Allergy Verified 11/08/16 01:44 Home Medications: Home Medication List Medication Instructions Recorded Confirmed Last Taken Type Allopurinol 300 mg PO QAM 05/28/16 11/08/16 11/07/16 09:00 History Carvedilol 6.25 mg PO BID 05/28/16 11/08/16 11/07/16 09:00 History Cholecalciferol (Vitamin D3) 50,000 unit PO Q7D 05/28/16 11/08/16 10/22/16 08: 00 History [Vitamin D3] Empagliflozin [Jardiance] 10 mg PO QAM 05/28/16 11/08/16 11/07/16 09:00 History Glyburide 5 mg PO BID 05/28/16 11/08/16 11/07/16 21:00 History Losartan/Hctz [Hyzaar 100/12.5 mg 1 each PO DAILY 05/28/16 11/08/16 11/07/16 09: 00 History Tab] Metformin [Glucophage] 1,000 mg PO BID CC 05/28/16 11/08/16 11/07/16 16:30 History Hydrocodone/APAP 10 mg/325 mg 1 each PO Q4H PRN PRN #30 tablet 06/06/1610/28/16 08:00 Rx [Dixie-10] ATORVAstatin [Lipitor] 20 mg PO HS 10/28/16 11/08/16 11/07/16 09:00 History Albiglutide [Tanzeum] 30 mg SQ Q7D 10/28/16 11/08/16 10/22/16 08:00 History Insulin Glargine [Lantus] 30 unit SUBQ QHS 10/28/16 11/08/16 11/07/16 21:00 History Ferrous Sulfate [Iron] 325 mg PO DAILY 11/08/16 11/08/16 11/07/16 09:00 History Docusate Sodium [Colace] 100 mg PO BID #60 capsule 11/13/16 Unknown Rx Hydrocodone/Acetaminophen [Dixie 1 each PO Q6H PRN PRN #30 tablet 11/13/16 Unknown Rx 7.5-325 Tablet] - History of Present Illness -Gen Adult Nature of Presenting Problems: 53 y/o male presents to ED with possible cellulitis of R lower leg and chills onset today. Pt reports hx of same. Pt is alert and oriented. Location of Pain/Injury: reports: lower extremity (R) Pain Radiation: reports: no radiation Quality of Pain: reports: aching, fullness Severity: reports: moderate, severe Onset/Duration: reports: this morning Timing: reports: still present Context/Activities at Onset: reports: none Modifying Factors: improves with: nothing Associated Symptoms: reports: fever/chills, other (possible cellulitis of R lower leg) Similar Symptoms Previously?: Yes (hx of same) Recently seen or treated by another doctor?: No - Diabetes Related Context Context: reports: other (possible cellulitis R lower leg) Review of Systems - Adult - REVIEW OF SYSTEMS - ADULT Constitutional: reports: chills, fever Eyes: reports: no symptoms reported Ears, Nose, Mouth & Throat: reports: no symptoms reported Cardiovascular: denies: chest pain, palpitations Respiratory: denies: cough, shortness of breath Gastrointestinal: denies: abdominal pain, diarrhea, nausea, vomiting Genitourinary: reports: no symptoms reported Musculoskeletal: reports: other (R lower leg possible cellulitis). denies: back pain, joint pain Integumentary: reports: no symptoms reported Neurological: denies: dizziness/vertigo, seizure Psychiatric: reports: no symptoms reported Endocrine: reports: no symptoms reported Hematologic/Lymphatic: reports: no symptoms reported Allergic/Immunologic: reports: no symptoms reported All Other Systems: Reviewed and Negative Past History - Adult - PAST MEDICAL HISTORY-ADULT Review of Records: reports: Old Records Reviewed, Nursing Assessment Review, Medications Reviewed Major Childhood Illnesses: reports: denies history Cardiovascular: reports: HTN Respiratory: reports: sleep apnea Musculoskeletal: reports: other (gout) Endocrine/Immune: reports: Diabetes - PRIOR SURGERIES/PROCEDURES Surgical/Procedure History: reports: orthopedic (extremity) (bilateral feet) - IMMUNIZATION STATUS Childhood Immunizations: See Nurse Assessment Flu Vaccine: See Nurse Assessment Physical Exam-General - PHYSICAL EXAM-ADULT Initial Vital Signs Reviewed: Yes - CONSTITUTIONAL General Appearance: appears well, alert, no apparent distress - EYES Eyes: PERRL/EOMI, pink conjunctivae - HEAD, EARS, NOSE, MOUTH & THROAT HENMT: normocephalic/atraumatic, moist mucous membranes, normal ENT inspection - NECK Neck: non-tender, full range of motion - RESPIRATORY Respiratory: chest non-tender, lungs clear, normal breath sounds - CARDIOVASCULAR Cardiovascular: tachycardia - GASTROINTESTINAL (ABDOMEN) Abdominal Exam: normal bowel sounds, non tender, soft - MUSCULOSKELETAL Back Exam: normal inspection, no CVA tenderness Extremity: normal range of motion, normal gait, erythema (R lower leg) - SKIN Integumentary: normal color, warm/dry, ecchymosis (R lower leg), warm (R lower leg), other (desquamated skin to R lower leg; dime-sized ulcer to R medial foot ; ulcer to 3rd digit of R foot; cracked skin of R lower leg) - NEUROLOGIC Neurologic: grossly normal - PSYCHIATRIC Psych/Mental Status: normal mood/affect, normal thought content, normal thought process Progress - PLAN OF CARE/RESULTS Progress/Plan/Lab Results: Vital Signs - 8 hr 05/08/18 14:26 Temperature 99.6 F Pulse Rate 107 H Respiratory Rate 22 Blood Pressure 133/88 O2 Sat by Pulse Oximetry 92 L Orders Category Date Time Status Finger Stick Blood Sugar (ED) DIRECTED Care 05/08/18 14:31 Active Saline Loc NOW Care 05/08/18 14:31 Active CHEST-2 VIEWS [RAD] Stat Exams 05/08/18 14:32 Ordered FOOT COMPLETE RIGHT [RAD] Stat Exams 05/08/18 14:32 Ordered ABG [RESP] Routine Lab 05/08/18 14:31 Ordered ACETONE SERUM [CHEM] Stat Lab 05/08/18 14:31 Uncollected BLOOD CULTURE [BLDCUL] Stat Lab 05/08/18 14:31 Uncollected CBC WITH ELECTRONIC DIFF [HEME] Stat Lab 05/08/18 14:31 Uncollected COMPREHENSIVE METABOLIC PANEL [CHEM] Stat Lab 05/08/18 14:31 Uncollected LACTATE, PLASMA [CHEM] Stat Lab 05/08/18 14:32 Uncollected MAGNESIUM [CHEM] Stat Lab 05/08/18 14:32 Uncollected PRO B-NATRIURETIC PEPTIDE Stat Lab 05/08/18 14:32 Uncollected PROTIME WITH INR [COAG] Stat Lab 05/08/18 14:32 Uncollected SED RATE [HEME] Stat Lab 05/08/18 14:32 Uncollected TROPONIN T Stat Lab 05/08/18 14:[address] W/POSS RFLX CULT [URINALYSIS] Stat Lab 05/08/18 14:32 Uncollected EKG [EKG] Stat Ther 05/08/18 14:31 Ordered Laboratory Tests 05/08/18 05/08/18 05/08/18 14:51 15:00 15:40 WBC RBC Hgb Hct MCV MCH MCHC RDW Std Deviation Plt Count MPV Immature Gran % (Auto) Neut % (Auto) Lymph % (Auto) [place] % (Auto) Eos % (Auto) Baso % (Auto) Immature Gran # (Auto) Neut # (Auto) Lymph # (Auto) [place] # (Auto) Eos # (Auto) Baso # (Auto) PT INR Specimen Type ARTERIAL Sample Site R RADIAL pH 7.46 H pCO2 31 L pO2 68 HCO3 24.2 Base Excess -0.8 Oxyhemoglobin 92.8 L ABG O2 Sat (Calculated) 19.6 ABG O2 Saturation 93.1 L ABG Carboxyhemoglobin 0.30 ABG Methemoglobin 0.0 Elpidio Test YES A-a O2 Difference 43.0 Total Hemoglobin 15.0 Lactate 2.00 Blood Gas Modality ROOM AIR FiO2 % 21.0 Sodium 138 Potassium 4.2 Chloride 100 Carbon Dioxide 24 L Anion Gap 14 BUN 16 Creatinine 1.2 Estimated GFR/1.73 m2 > 60 BUN/Creatinine Ratio 13 Glucose 206 H POC Glucose 207 H Calculated Osmolality 283 Calcium 9.6 Magnesium 1.8 Total Bilirubin 0.90 AST 44 H ALT 66 H Alkaline Phosphatase 72 Troponin T Ukm-F-Ioxaznxisyr Pept Total Protein 7.5 Albumin 4.0 Globulin 4.0 Albumin/Globulin Ratio 1.0 Plasma Lactate Urine Source Urine Color Urine Clarity Urine pH Ur Specific [place] Urine Protein Urine Ketones Urine Blood Urine Nitrite Urine Bilirubin Urine Urobilinogen Urine Microscopic RBC Urine WBC Urine Microscopic WBC Ur Epithelial Cells Urine Crystals Urine Bacteria Urine Casts Urine Yeast Urine Glucose Acetone Level NEGATIVE 05/08/18 05/08/18 05/08/18 15:40 15:40 15:40 WBC 14.77 H RBC 4.82 Hgb 15.0 Hct 43.8 MCV 90.9 MCH 31.1 H MCHC 34.2 RDW Std Deviation 14.0 Plt Count 194 MPV 10.8 H Immature Gran % (Auto) 0.3 Neut % (Auto) 90.0 H Lymph % (Auto) 5.4 L [place] % (Auto) 4.1 Eos % (Auto) 0.1 Baso % (Auto) 0.1 Immature Gran # (Auto) 0.05 H Neut # (Auto) 13.29 H Lymph # (Auto) 0.80 L [place] # (Auto) 0.60 H Eos # (Auto) 0.01 Baso # (Auto) 0.02 PT INR Specimen Type Sample Site pH pCO2 pO2 HCO3 Base Excess Oxyhemoglobin ABG O2 Sat (Calculated) ABG O2 Saturation ABG Carboxyhemoglobin ABG Methemoglobin Elpidio Test A-a O2 Difference Total Hemoglobin Lactate Blood Gas Modality FiO2 % Sodium Potassium Chloride Carbon Dioxide Anion Gap BUN Creatinine Estimated GFR/1.73 m2 BUN/Creatinine Ratio Glucose POC Glucose Calculated Osmolality Calcium Magnesium Total Bilirubin AST ALT Alkaline Phosphatase Troponin T Abb-D-Cfeezwmnvqj Pept 316 H Total Protein Albumin Globulin Albumin/Globulin Ratio Plasma Lactate 2.8 H Urine Source Urine Color Urine Clarity Urine pH Ur Specific [place] Urine Protein Urine Ketones Urine Blood Urine Nitrite Urine Bilirubin Urine Urobilinogen Urine Microscopic RBC Urine WBC Urine Microscopic WBC Ur Epithelial Cells Urine Crystals Urine Bacteria Urine Casts Urine Yeast Urine Glucose Acetone Level 05/08/18 05/08/18 05/08/18 15:40 15:40 15:44 WBC RBC Hgb Hct MCV MCH MCHC RDW Std Deviation Plt Count MPV Immature Gran % (Auto) Neut % (Auto) Lymph % (Auto) [place] % (Auto) Eos % (Auto) Baso % (Auto) Immature Gran # (Auto) Neut # (Auto) Lymph # (Auto) [place] # (Auto) Eos # (Auto) Baso # (Auto) PT 14.1 INR 1.04 Specimen Type Sample Site pH pCO2 pO2 HCO3 Base Excess Oxyhemoglobin ABG O2 Sat (Calculated) ABG O2 Saturation ABG Carboxyhemoglobin ABG Methemoglobin Elpidio Test A-a O2 Difference Total Hemoglobin Lactate Blood Gas Modality FiO2 % Sodium Potassium Chloride Carbon Dioxide Anion Gap BUN Creatinine Estimated GFR/1.73 m2 BUN/Creatinine Ratio Glucose POC Glucose Calculated Osmolality Calcium Magnesium Total Bilirubin AST ALT Alkaline Phosphatase Troponin T < 0.010 Ogf-U-Pwkkvauzkaw Pept Total Protein Albumin Globulin Albumin/Globulin Ratio Plasma Lactate Urine Source CLEAN CATCH Urine Color YELLOW Urine Clarity CLEAR Urine pH 6.5 Ur Specific [place] 1.010 Urine Protein 1+(30 mg/dL) A Urine Ketones TRACE Urine Blood 1+ A Urine Nitrite NEGATIVE Urine Bilirubin NEGATIVE Urine Urobilinogen NORMAL Urine Microscopic RBC <10 Urine WBC TRACE A Urine Microscopic WBC <10 Ur Epithelial Cells <10 Urine Crystals NONE SEEN Urine Bacteria 1+ Urine Casts NONE SEEN Urine Yeast NONE SEEN Urine Glucose 3+(500 mg/dL) A Acetone Level Result Diagrams: 05/08/18 15:40 05/08/18 15:40 - REASSESSMENT Reassessment #1 Time Reassessed: 16:36 Status: improving Reassessment Comment: Better after IVF bolus, tylenol, zosyn and vanc. Patient is septic - EKG 1 Time of EKG reading by physician:: 14:54 EKG Read and Signed by:: Fransisco Alvarez EKG Interpretation (*Must complete 3 of following elements*): Abnormal Rate: 99 Rhythm: NSR [place]: normal QRS: RBB (Incomplete), poor R wave progression, other (inferior infarct; cannot rule out anterior infarct) WI Interval: normal ST Wave: normal - XRAY 1 XRAY: Right XRAY Study: other (Lower Extremity) Impression: Normal (FINDINGS: There are degenerative changes at the ankle which are most prominent at the articulation between the fibula and talus. There is smooth cortical thickening along the posterior margin of the distal fibula which is likely long-standing, and may relate to old fracture or stress fracture. There is no discrete acute fracture identified. There are no discrete erosive or destructive changes identified. There is hypertrophic bony spurring noted at the anterior patella. IMPRESSION: Degenerative changes of ankle, most prominent laterally. Probably chronic cortical thickening along posterior margin of distal fibula. No discrete acute process. Electronically signed by Isaiah Rodriguez 05/08/2018 4:32 PM) 2 XRAY: Right XRAY Study: Foot Impression: Abnormal (FINDINGS: There are postsurgical changes with metallic screws at the posterior calcaneus similar to prior. There are postsurgical changes with metallic screws at the proximal first metatarsal similar to prior. There is an old incompletely united fracture at the junction of the base and shaft of the fifth metatarsal (Wesley fracture). There is no other acute fracture or dislocation identified. There are no acute bony erosive or destructive changes identified. IMPRESSION: Postsurgical changes. Old incompletely united Wesley fracture at proximal fifth metatarsal. No indication of osteomyelitis. Please note that early osteomyelitis can be radiographically occult. Electronically signed by [employer] 05/08/2018 4 :36 PM) 3 XRAY Study: Chest Impression: Abnormal (FINDINGS: Heart size is normal. Inspiration is mildly shallow. There is apparent ill-defined mild infrahilar infiltrate on the right. There is no dense consolidation, pleural effusion, or pneumothorax identified. IMPRESSION: Mildly shallow inspiration. Mild infrahilar infiltrate on the right. Bronchopneumonia cannot be excluded. Electronically signed by [employer] 05/08/2018 4:27 PM) - CONSULTS/PCP/HOSPITALIST Notification #1 *Consult/PCP/Hospitalist*: [place] paged at [phone] Consult Disposition: Will see in ED Departure - Departure Date of Disposition Decision: 05/08/18 Time of Disposition Decision: 16:34 DIAGNOSIS: Cellulitis of right lower leg, Type 2 diabetes mellitus with hyperglycemia, with long-term current use of insulin Sepsis Qualifiers: Sepsis type: sepsis due to unspecified organism Qualified Code(s): A41.9 - Sepsis, unspecified organism Fever Qualifiers: Fever type: unspecified Qualified Code(s): R50.9 - Fever, unspecified Disposition: ADMITTED INPATIENT 09 Certified Medical Emergency: Emergent Condition: Fair Referrals and Follow-Ups: None,PCP [Primary Care Provider] - - Critical Care Note This patient required my direct & personal management of CC.: Yes Total Time (mins): 40 Critical Care Statement: This patient required my direct personal management to treat or rule out processes, the absence of which, could potentiallly result in sudden, clinically significant life or limb threatening deterioration. Attestation - Physician/ MITESH Attestation Patient care was provided by Advanced Practice Provider:: No The physician spent face to face time with patient:: Yes Advanced Practice Provider documentation review:: Supervising physician onsite and consulted in the evaluation and care of this patient. The physician did have a face to face encounter with the patient. This chart was documented by the indicated scribe, (Laureen,Razia F, Scribe) and accurately reflects the services I performed and decisions made by me, Fransisco Alvarez MD, as attested by the provider's signature.
[2018-05-08] MEDS ORDERED: VANCOMYCIN IV PER PHARMACY MISC SCH (22:49)
[2018-05-08] MEDS ORDERED: VANCOMYCIN 1 GM/NS 1 GM/250 ML IVPB IV ONE (23:00)
[2018-05-08 23:18] LABS: INR 1.13; PROTIME 15.1 Seconds (11.0-16.0)
[2018-05-09] MEDS ORDERED: VANCOMYCIN 500 MG/NS 500 MG/100 ML IVPB IV ONE
[2018-05-09 00:07] LABS: AGAP 13; ALBUMIN 3.6 g/dL (3.5-5.0); ALKALINE PHOSPHATASE 65 U/L (32-122); BUN 15 mg/dL (8-22); CALCIUM 9.2 mg/dL (8.8-10.2); CHLORIDE 99 mmol/L (98-107); COSMO 275; CREATININE 1.2 mg/dL (0.7-1.2); ESTIMATED GFR > 60; GLUCOSE 168 mg/dL (70-104); GOT 35 U/L (10-34); GPT 55 U/L (10-44); POTASSIUM 3.7 mmol/L (3.5-5.1); SODIUM 135 mmol/L (136-145); TCO2 23 mmol/L (25-35); TOTAL PROTEIN 7.8 g/dL (6.3-8.3)
--- NOTE | 2018-05-09 00:30 | HISTORY AND PHYSICAL ---
CHIEF COMPLAINT: Right leg pain and swelling. He said this just started today , also chills. Started out with pain in the lower portion of his leg and then it just continued to extend up into his knee. He has a history of diabetes. He has a history of infections in his left foot for which now he has an amputation, I think a [id number] amputation. He had neuropathy which he had a BKA per Dr. Corona and he was discharged. That was over a year ago. He has a prosthesis in place. Today came in. He had a temperature of 101.7, white count of 14,000. He clearly has erythema and pain along his right lower extremity and he was admitted for treatment. PAST MEDICAL HISTORY: 1. Type 2 diabetes. 2. Charcot feet. 3. Vitamin D deficiency. 4. Hypertension. 5. Hyperlipidemia. 6. Gout. 7. Obstructive sleep apnea. 8. Left BKA. SOCIAL HISTORY: No tobacco or ethanol. 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 ALLERGIES: No known drug allergies. MEDICATIONS: Have not been confirmed: Lantus, bydureon, allopurinol, Lipitor , Coreg, Jardiance, vitamin D3, iron, glyburide, Hyzaar, metformin, Colace, [place]. REVIEW OF SYSTEMS: Otherwise negative times a 10 point review of systems. PHYSICAL EXAMINATION: VITAL SIGNS: Blood pressure was stable, blood pressure 126/65, heart rate of 94 , respiratory rate of 20, temperature was 100 degrees, respiratory rate of 20, heart rate 94. GENERAL: A well-developed male in no acute distress. HEENT: Head exam was normocephalic, atraumatic. Eye exam, pupils are equal, round, reactive to light. Extraocular movements were intact. Ear nose and throat exam, he had moist mucous membranes. NECK: Exam was supple. CARDIOVASCULAR: Exam was regular rate and rhythm. No murmurs, gallops, or rubs. PULMONARY: Bilateral breath sounds clear to auscultation. GASTROINTESTINAL: Soft, nontender, nondistended. Bowel sounds are positive. EXTREMITY: No clubbing or cyanosis. SKIN: He had fairly significant erythema, almost a subcutaneous petechial hemorrhage from his ankle all the way up to his knee. It was painful, had heat and extended up right past his knee. He had a couple of open sore areas that were dry eye that looked almost like blisters that had deroofed, 1 on the arch of his foot medial aspect and 1 near the ankle. NEUROLOGICALLY: Cranial nerves 2-12 were intact. MUSCULOSKELETAL: Exam was 5/5 in all 4 extremities. LABORATORY DATA: White count 14, hemoglobin and hematocrit 15 and 43, platelets 194,000. ABG okay. Basic was okay. AST and ALT were up a bit. Urine was negative. Acetone was negative. ASSESSMENT: 1. A 53-year-old male presenting with a right lower extremity cellulitis and sepsis. He was treated and we will continue to follow. Empirically, I am going to put him on vancomycin and Unasyn and we will follow for clinical improvement. I do think he needs venous ultrasound and I think he may need an arterial study. I could not palpate his pulse very easily. 2. Diabetes. Uncertain what level control we are looking at. Continue sliding scale and follow closely. 3. Hypertension. Continue his regular medications. At this point he seems to be stabilizing. DISPOSITION: Pending his clinical status. cc: MD Jesús Carver MD MTDD
[2018-05-09] MEDS: HUMULIN R (PARKWAY) SUBQ SCH ×5 (00:52→20:45)
[2018-05-09] MEDS: NS IV SCH ×4 (01:24→21:04)
[2018-05-09] MEDS: UNASYN IV SCH ×4 (01:24→21:04)
[2018-05-09 06:04] LABS: BASO# 0.02 X1000 (0.0-0.2); BASO% 0.2 % (0.0-0.8); EOS# 0.03 X1000 (0.0-0.7); EOS% 0.2 % (0.0-10.0); HEMATOCRIT 38.5 % (42.0-52.0); HEMOGLOBIN 12.7 g/dL (14.0-18.0); IMM GRAN# 0.04 X1000 (0.0-0.04); IMM GRAN% 0.3 % (0.0-0.5); LYMPH# 0.87 X1000 (1.2-3.4); LYMPH% 7.2 % (20.5-51.1); MCH 30.1 PG (27-31); MCV 91.2 FL (81-99); MONO# 0.39 X1000 (0.11-0.59); MONO% 3.2 % (1.7-9.3); MPV 10.3 FL (7.4-10.4); NEUT# 10.77 X1000 (1.4-6.5); NEUT% 88.9 % (42.2-75.2); PLT 167 X1000 (130-400); RBC 4.22 XMIL (4.7-6.1); RDW 14.2 % (11.5-14.5); WBC 12.12 X1000 (4.8-10.8)
[2018-05-09] MEDS: TYLENOL PO PRN ×3 (06:07→22:07)
[2018-05-09 06:12] LABS: HEMOGLOBIN A1C 7.1 % (4.8-6.0)
[2018-05-09 07:59] LABS: BANDS 6 % (0-1); LYMPHS 6 % (21-51); MONO 3 % (1-9); SEGS 85 % (42-75)
[2018-05-09 08:00] LABS: ANISOCYTOSIS 1+; MICROCYTOSIS OCCASIONAL
[2018-05-09] MEDS: NORCO-7.5 PO PRN (10:33)
[2018-05-09] MEDS: ZOFRAN IV PRN ×2 (11:58→16:04)
[2018-05-09] MEDS: PRILOSEC PO SCH (13:44)
[2018-05-09] MEDS: VANCOMYCIN 2,300 MG in NS 500 ML IV SCH (18:03)
[2018-05-09] MEDS ORDERED: NON-FORMULARY MED (Empagliflozin [Jardiance] 25 MG) PO SCH (19:15)
[2018-05-09] MEDS: BASAGLAR SUBQ SCH (20:33)
[2018-05-09] MEDS: COREG PO SCH (20:35)
[2018-05-09] MEDS: REGLAN IV SCH (20:36)
[2018-05-09] MEDS: DIABETA PO SCH (20:36)
[2018-05-09] MEDS: AMBIEN PO PRN (22:07)
[2018-05-09 22:37] LABS: INFLUENZA A NEGATIVE (NEGATIVE); INFLUENZA B NEGATIVE (NEGATIVE)
--- NOTE | 2018-05-10 00:02 | PROGRESS NOTE ---
DATE: 05/09/2018 SUBJECTIVE: Patient did not feel well. He has had some nausea today and he has had some fever today. OBJECTIVE: He has had a temperature today of 101.8, he had a temperature last night as well. Blood pressure is 159/81, heart rate of 88, respiratory 18, temperature 99.1 degrees. Cardiovascular: Regular rate and rhythm. Pulmonary: Bilateral breath sounds. Clear to auscultation. GI: Was soft, nontender, nondistended. Bowel sounds are positive. Extremities: No clubbing or cyanosis. Lymphatic: No peripheral edema. Neurologic: Nonfocal. LABORATORY DATA: His right extremity still has diffuse erythema and subcutaneous hemorrhage petechial. In any case. 1. Cellulitis. Really has not much improved. Some of this is old subcutaneous injury . He is on vancomycin and Unasyn. We will continue these antibiotics for at least another 24 hours. In any case we will continue antibiotics and follow. 2. Possible bronchopneumonia. He definitely has some rhonchorous kind of breath sounds. I am concerned he may have some bronchopneumonia additionally, we will repeat a chest x-ray tomorrow and follow. 3. Diabetes is still not completely controlled although it is not terribly controlled either and his A1c is 7.1 so I think he is doing okay from that standpoint. 4. Hypertension. Will continue his regular medications. 5. Nausea. This may be multifactorial. Hopefully has nothing to do with any gastroparesis. I will give him some medicine, see if we can try to make him a little bit more comfortable. cc: Tomás More MD
[2018-05-10] MEDS: NS IV SCH ×4 (02:51→21:24)
[2018-05-10] MEDS: UNASYN IV SCH ×4 (02:51→21:24)
[2018-05-10] MEDS: PRILOSEC PO SCH (06:40)
[2018-05-10] MEDS: LOVENOX SUBQ SCH (06:40)
[2018-05-10] MEDS: REGLAN IV SCH ×2 (06:40→21:22)
[2018-05-10] MEDS: HUMULIN R (PARKWAY) SUBQ SCH ×4 (06:59→21:17)
--- NOTE | 2018-05-10 07:16 | Diag Imaging Result Doc PS360 ---
EXAM: FLAT/UPRIGHT ABD/1 VIEW CHEST 05/10/2018 HISTORY: n/v TECHNIQUE: Flat and upright abdomen and PA chest COMMENT: There may be some atelectasis at the right base. This has not changed appreciably since 05/08/2018. There is a fair amount of stool in the colon particularly the ascending colon. The small bowel and stomach are not distended. There is no evidence of organomegaly or mass. The seminal vesicles are calcified IMPRESSION: Constipation. Electronically signed by Akin Matthews 05/10/2018 7:13 AM
[2018-05-10 07:22] LABS: BASO# 0.01 X1000 (0.0-0.2); BASO% 0.1 % (0.0-0.8); EOS# 0.05 X1000 (0.0-0.7); EOS% 0.4 % (0.0-10.0); HEMATOCRIT 39.4 % (42.0-52.0); IMM GRAN# 0.04 X1000 (0.0-0.04); IMM GRAN% 0.3 % (0.0-0.5); LYMPH# 1.06 X1000 (1.2-3.4); LYMPH% 8.8 % (20.5-51.1); MCH 30.2 PG (27-31); MCV 91.6 FL (81-99); MONO# 0.82 X1000 (0.11-0.59); MONO% 6.8 % (1.7-9.3); MPV 10.2 FL (7.4-10.4); NEUT# 10.06 X1000 (1.4-6.5); NEUT% 83.6 % (42.2-75.2); PLT 198 X1000 (130-400); RDW 14.3 % (11.5-14.5); WBC 12.04 X1000 (4.8-10.8)
[2018-05-10 07:34] LABS: AGAP 12; ALBUMIN 3.3 g/dL (3.5-5.0); ALKALINE PHOSPHATASE 80 U/L (32-122); BUN 13 mg/dL (8-22); CALCIUM 8.7 mg/dL (8.8-10.2); CHLORIDE 101 mmol/L (98-107); COSMO 273; CREATININE 1.1 mg/dL (0.7-1.2); ESTIMATED GFR > 60; GLUCOSE 155 mg/dL (70-104); GOT 23 U/L (10-34); GPT 36 U/L (10-44); POTASSIUM 3.9 mmol/L (3.5-5.1); SODIUM 135 mmol/L (136-145); TCO2 22 mmol/L (25-35); TOTAL PROTEIN 6.9 g/dL (6.3-8.3)
[2018-05-10] MEDS: GLUCOPHAGE PO SCH ×2 (08:46→17:14)
[2018-05-10] MEDS: DIABETA PO SCH ×2 (08:46→21:23)
[2018-05-10] MEDS: COZAAR PO SCH (08:46)
[2018-05-10] MEDS: COREG PO SCH ×2 (08:46→21:23)
[2018-05-10] MEDS: NON-FORMULARY MED PO SCH (08:46)
[2018-05-10] MEDS ORDERED: HYDROCHLOROTHIAZIDE PO SCH (09:00)
[2018-05-10] MEDS: VANCOMYCIN 2,300 MG in NS 500 ML IV SCH (12:06)
[2018-05-10] MEDS: TYLENOL PO PRN ×2 (12:12→21:23)
--- NOTE | 2018-05-10 12:30 | Extremity Venous Study ---
EXAM: Venous U/S Right Leg 05/09/2018 HISTORY: swelling TECHNIQUE: Compression venous ultrasound of the right leg with color Doppler flow COMMENT: The deep veins of the right leg are compressible and there is normal color Doppler flow. There is reflux seen across the right common femoral and great saphenous vein. There is also reflux in the left common femoral vein. IMPRESSION: No evidence of deep venous thrombosis or superficial venous thrombosis. Venous valvular incompetence in the common femoral vein great saphenous vein and left common femoral vein. Electronically signed by Akin Matthews 05/10/2018 12:28 PM
[2018-05-10] MEDS: LACTULOSE PO SCH ×2 (14:12→21:21)
[2018-05-10] MEDS: MIRALAX PO SCH (14:12)
--- NOTE | 2018-05-10 16:56 | PROGRESS NOTE ---
DATE: 05/10/2018 SUBJECTIVE: He says he feels better today. Nausea has resolved. No major issues. OBJECTIVE: Blood pressure is 132/68, heart rate of 86, respiratory 18, temperature was 99 degrees. He has not had any more fever but he did have a temperature of 101.8 degrees yesterday at 1600.Cardiovascular: Regular rate and rhythm. Pulmonary: Bilateral breath sounds clear to auscultation. GI: Was soft, nontender, nondistended. Bowel sounds were positive. Extremity: No clubbing or cyanosis. Lymphatic: No peripheral edema. Neurological: Nonfocal. LABORATORY DATA: White count is 12, hemoglobin and hematocrit 13, 39, platelets 198,000. Basic was normal. His wound culture has grown out gram-positive cocci but nothing else but I still do not have a final identification. Plain films show constipation. PROBLEMS: 1. Right lower extremity cellulitis. Clinically he has improved, white count still there, he still had a fever, hopefully another 24 hours he will be stable for discharge. 2. Pneumonia possible bronchopneumonia, shows some right lower lobe infiltrate. We will continue antibiotics and follow. He is on vancomycin and Unasyn and seems to be doing better. 3. Diabetes that seems to be well controlled. He is on his regular medications, continue to follow. 4. Nausea. He has got some constipation. Will continue regular medications and monitor very closely. Anticipate discharge hopefully within the next 24 hours if stable. cc: Tomás More MD
[2018-05-10] MEDS: BASAGLAR SUBQ SCH (21:22)
[2018-05-10] MEDS: AMBIEN PO PRN (21:23)
[2018-05-11] MEDS: NS IV SCH (03:15)
[2018-05-11] MEDS: UNASYN IV SCH (03:15)
[2018-05-11] MEDS: PRILOSEC PO SCH (06:10)
[2018-05-11] MEDS: VANCOMYCIN 2,300 MG in NS 500 ML IV SCH (06:11)
[2018-05-11] MEDS: LOVENOX SUBQ SCH (06:11)
[2018-05-11] MEDS: HUMULIN R (PARKWAY) SUBQ SCH ×4 (06:56→20:53)
[2018-05-11 07:28] LABS: BASO# 0.02 X1000 (0.0-0.2); BASO% 0.2 % (0.0-0.8); EOS# 0.14 X1000 (0.0-0.7); EOS% 1.4 % (0.0-10.0); HEMATOCRIT 35.6 % (42.0-52.0); HEMOGLOBIN 11.8 g/dL (14.0-18.0); IMM GRAN# 0.06 X1000 (0.0-0.04); IMM GRAN% 0.6 % (0.0-0.5); LYMPH% 12.2 % (20.5-51.1); MCH 30.3 PG (27-31); MCHC 33.1 g/dL (33-37); MCV 91.3 FL (81-99); MONO# 0.82 X1000 (0.11-0.59); MONO% 8.4 % (1.7-9.3); MPV 10.5 FL (7.4-10.4); NEUT# 7.56 X1000 (1.4-6.5); NEUT% 77.2 % (42.2-75.2); PLT 201 X1000 (130-400); RDW 14.4 % (11.5-14.5)
[2018-05-11 07:46] LABS: AGAP 12; BUN 17 mg/dL (8-22); CALCIUM 8.3 mg/dL (8.8-10.2); CHLORIDE 105 mmol/L (98-107); COSMO 280; CREATININE 0.9 mg/dL (0.7-1.2); ESTIMATED GFR > 60; GLUCOSE 111 mg/dL (70-104); POTASSIUM 3.7 mmol/L (3.5-5.1); SODIUM 139 mmol/L (136-145); TCO2 22 mmol/L (25-35)
[2018-05-11] MEDS: DIABETA PO SCH ×2 (08:34→22:14)
[2018-05-11] MEDS: MIRALAX PO SCH (08:35)
[2018-05-11] MEDS: COZAAR PO SCH (08:35)
[2018-05-11] MEDS: COREG PO SCH ×2 (08:35→22:14)
[2018-05-11] MEDS: GLUCOPHAGE PO SCH ×2 (08:35→16:58)
[2018-05-11] MEDS: NON-FORMULARY MED PO SCH (08:35)
[2018-05-11] MEDS: LACTULOSE PO SCH ×2 (08:56→22:12)
[2018-05-11] MEDS: KEFZOL 2 GM/D5W 2 GM/50 ML IVPB IV SCH ×2 (10:23→16:59)
[2018-05-11] MEDS: TYLENOL PO PRN (14:42)
--- NOTE | 2018-05-11 15:23 | PROGRESS NOTE ---
DATE: 05/11/2018 SUBJECTIVE: He feels better today. He had a slight temp 100.8 yesterday evening, but no temp since that time. His last full fever was on the 4th, so it is somewhat improved. OBJECTIVE: Cardiovascular: Regular rate and rhythm. Pulmonary: Bilateral breath sounds. Clear to auscultation. Gastrointestinal: Soft, nontender, nondistended. Bowel sounds are positive. LABORATORY DATA: White count is 9, hemoglobin and hematocrit 11 and 35, platelets of 201,000. Basic was normal. PROBLEM LIST: 1. Right lower extremity cellulitis per cultures is positive for MSSA, so we will switch him to cefazolin. If it grows out just Staph MSSA he could go home on dicloxacillin or Keflex for 10 days if he is improved afebrile. White count has normalized. 2. Diabetes. That seems to be relatively well controlled, actually pretty well controlled on his constellation of medicines. 3. Possible pneumonia. He is empirically on antibiotics. We will continue to follow. DISPOSITION: I think it is possible he could go home tomorrow if he is improved. He does need to keep that leg elevated and we will continue to follow. Updated the patient and today. cc: Tomás More MD
[2018-05-11] MEDS: LASIX PO SCH (16:58)
[2018-05-11] MEDS: BASAGLAR SUBQ SCH (22:14)
[2018-05-12] MEDS: KEFZOL 2 GM/D5W 2 GM/50 ML IVPB IV SCH ×2 (01:15→10:44)
[2018-05-12] MEDS: NORCO-7.5 PO PRN (02:21)
[2018-05-12] MEDS: HUMULIN R (PARKWAY) SUBQ SCH ×3 (06:01→16:02)
[2018-05-12] MEDS: PRILOSEC PO SCH (06:08)
[2018-05-12 06:44] LABS: BASO# 0.03 X1000 (0.0-0.2); BASO% 0.3 % (0.0-0.8); EOS# 0.21 X1000 (0.0-0.7); EOS% 2.4 % (0.0-10.0); HEMATOCRIT 35.5 % (42.0-52.0); HEMOGLOBIN 11.7 g/dL (14.0-18.0); IMM GRAN# 0.13 X1000 (0.0-0.04); IMM GRAN% 1.5 % (0.0-0.5); LYMPH# 1.52 X1000 (1.2-3.4); LYMPH% 17.2 % (20.5-51.1); MCH 29.8 PG (27-31); MCV 90.6 FL (81-99); MONO# 0.76 X1000 (0.11-0.59); MONO% 8.6 % (1.7-9.3); MPV 10.5 FL (7.4-10.4); NEUT# 6.19 X1000 (1.4-6.5); PLT 196 X1000 (130-400); RBC 3.92 XMIL (4.7-6.1); RDW 14.2 % (11.5-14.5); WBC 8.84 X1000 (4.8-10.8)
[2018-05-12 06:52] LABS: AGAP 12; BUN 16 mg/dL (8-22); CALCIUM 8.5 mg/dL (8.8-10.2); CHLORIDE 102 mmol/L (98-107); COSMO 272; CREATININE 0.9 mg/dL (0.7-1.2); ESTIMATED GFR > 60; GLUCOSE 82 mg/dL (70-104); POTASSIUM 3.2 mmol/L (3.5-5.1); SODIUM 136 mmol/L (136-145); TCO2 22 mmol/L (25-35)
[2018-05-12] MEDS ORDERED: KLOR-CON PO ONE (07:48)
[2018-05-12] MEDS: LACTULOSE PO SCH (10:08)
[2018-05-12] MEDS ORDERED: SODIUM CHLORIDE 0.9% 10 ML ONE (10:19)
[2018-05-12] MEDS: LASIX PO SCH (10:32)
[2018-05-12] MEDS: DIABETA PO SCH (10:32)
[2018-05-12] MEDS: GLUCOPHAGE PO SCH (10:32)
[2018-05-12] MEDS: COREG PO SCH (10:32)
[2018-05-12] MEDS: COZAAR PO SCH (10:32)
[2018-05-12] MEDS: MIRALAX PO SCH (10:33)
[2018-05-12] MEDS: NON-FORMULARY MED PO SCH (10:33)
[2018-05-12 15:50] VITALS: BP 142/65
[2018-05-12] MEDS: TYLENOL PO PRN (16:03)
--- NOTE | 2018-05-13 05:55 | DISCHARGE SUMMARY ---
ADMISSION DATE: 05/08/2018 DISCHARGE DATE: 05/12/2018 PRIMARY CARE PHYSICIAN: Jesús Elena MD. DISCHARGE DIAGNOSES: 1. Left lower extremity cellulitis with culture positive for methicillin susceptible Staphylococcus aureus as well as Streptococcus pyogenes group A. 2. Sepsis secondary to #1, resolved. 3. Pneumonia, right lower lobe infiltrate. 4. Diabetes mellitus. 5. History of hypertension. 6. Obstructive sleep apnea. DIAGNOSTICS: 1. Chest x-ray revealed mild infrahilar infiltrate on the right, bronchial pneumonia cannot be excluded. 2. Right foot x-ray revealed postsurgical changes. No indication of osteomyelitis. 3. Lower extremity Doppler on the right revealed no evidence of DVT or superficial venous thrombosis. Venous valvular incompetence in the common femoral vein, great saphenous vein and left common femoral vein. 4. Abdominal x-ray revealed constipation. MICROBIOLOGY: 1. Urine culture revealed no growth. 2. Blood cultures x2 revealed no growth after 48 hours. 3. Right foot wound culture revealed a methicillin-susceptible Staphylococcus aureus and Streptococcus pyogenes group A. HOSPITAL COURSE: Mr. Rowe presented to the emergency room complaining of right leg pain and swelling, as well as chills. He was found to have cellulitis with cultures as stated above. He was also found to have possible bronchopneumonia for which he was initially treated with vancomycin and Unasyn which has since been discontinued. He was initially treated with vancomycin and Unasyn, and then transitioned over to Keflex orally once cultures resulted. He has remained afebrile for the last 48 hours. Subjectively he does feel that his leg has improved. Dictated by WAYLON De Los Santos for Octaviano Grey MD This chart was documented by, WAYLON De Los Santos and accurately reflects the services performed, treatment plan and medical decisions as attested by the providers signature Octaviano Grey MD. cc: WAYLON De Los Santos MD
[2018-05-14] MEDS ORDERED: PATIENT'S OWN MED SUBQ SCH (09:00)
== END 2018-05-12 18:35 | disposition home or self-care (01) | DRG 871 ==
LOC: P.ED 14:21 → SUATTDRO 14:22 → P.MEDSURG 22:15
PROVIDERS: ATTEND Family Medicine
CPT/HCPCS: 71020; 71046; 73590; 73630; 74022; 80048; 80053; 80076; 81001; 82009; 82805; 82948; 83036; 83605; 83735; 83880; 84484; 85025; 85610; 85651; 87040; 87070; 87077; 87088; 87186; 87275; 87276; 87804; 93005; 93971; 96361; 96365; 96367; 99285; 99291; A9270; J0295; J0690; J1650; J2405; J2543; J2765; J3370; J7030; J7040; XXXXX